=== PATIENT | female | born 1935 | race African-American/Black ===

== ENCOUNTER 2018-02-12 12:16 | Observation (INO) | payer MEDICARE, MEDICAID ==
[2018-02-12 13:06] LABS: #Basophils 0.1 thou/uL (0.0-0.2); #Eosinphils 0.2 thou/uL (0.0-0.7); #Lymphocytes 1.9 thou/uL (1.20-3.40); #Monocytes 0.5 thou/uL (0.11-0.59); #Neutrophils 3.7 thou/uL (1.40-6.50); %Basophils 1.2 % (0.0-1.0); %Eosinophils 3.7 % (0.0-10.0); %Lymphocytes 29.1 % (21.0-51.0); %Monocytes 7.1 % (0.0-10.0); Hemoglobin 13.7 g/dL (12.0-16.0); Mean Corpuscular HGB CONC 33.3 g/dL (32.0-36.0); Mean Corpuscular Hemoglobin 29.8 pg (27.0-31.0); Mean Corpuscular Volume 89.4 fL (78.0-98.0); Mean Platelet Volume 8.3 fL (7.4-10.4); Platelet Count 201 thou/uL (130-400); RBC Distribution Width 12.5 % (11.5-14.5); Red Blood Cell (RBC) Count 4.59 mill/uL (4.20-5.40); White Blood Cell (WBC) Count 6.4 thou/uL (4.8-10.8)
--- NOTE | 2018-02-12 13:31 | RAD ---
PORTABLE CHEST 1 VIEW: DATE: 02/12/18 TIME: 12:30 p.m. HISTORY: Dizziness. FINDINGS: The heart size is mildly enlarged. The aorta is tortuous. The lungs are expanded without focal area s of consolidation, pneumothoraces, or pleural effusions. There are degenerative changes in the spin e. IMPRESSION: Mild cardiomegaly. POS: C
[2018-02-12 13:32] LABS: CKMB 1.1 ng/mL (0-6.6); Troponin I Less than 0.010 ng/mL (< 0.028)
--- NOTE | 2018-02-12 13:32 | CT ---
CT BRAIN WITHOUT CONTRAST: HISTORY: Vertigo, dizziness. FINDINGS: There are no previous exams for comparison. There are changes of cortical atrophy and chronic small vessel ischemic disease. The ventricular size is appropriate and the basilar cisterns are patent. T he bony calvarium is intact. The visualized paranasal sinuses and mastoid air cells are well aerated . IMPRESSION: No CT evidence of acute intracranial process. POS: C
[2018-02-12] MEDS ORDERED: Aspirin 325 MG TAB ONE (14:05)
[2018-02-12] MEDS ORDERED: Labetalol HCl 100 MG/20 ML VIAL ONE (14:05)
[2018-02-12 14:50] LABS: Albumin 3.9 g/dL (3.4-4.8)
[2018-02-12 14:51] LABS: Calcium 9.4 mg/dL (7.8-10.44); Chloride 110 mmol/L (98-107); Potassium 3.8 mmol/L (3.5-5.1); Sodium 140 mmol/L (136-145)
[2018-02-12 14:52] LABS: Globulin 3.6 g/dL (2.4-3.5); Glucose 96 mg/dL (83-110); Protein, Total 7.5 g/dL (6.0-8.3)
[2018-02-12 14:54] LABS: Anion Gap 11 mmol/L (10-20); Bilirubin, Total 0.5 mg/dL (0.2-1.2); Carbon Dioxide 23 mmol/L (23-31)
[2018-02-12 14:55] LABS: Alkaline Phosphatase 81 U/L (40-150); Calc. Creatinine Clearance 0 mL/min (70-130); Estimated GFR-MDRD 88
[2018-02-12 14:56] LABS: BUN (Urea Nitrogen) 17 mg/dL (9.8-20.1)
[2018-02-12 14:57] LABS: AST (SGOT) 18 U/L (5-34)
[2018-02-12 14:58] LABS: ALT (SGPT) 7 U/L (8-55); CK (CPK) 116 U/L (29-168)
[2018-02-12 18:26] VITALS: BMI 30.2
[2018-02-12] MEDS ORDERED: hydrALAZINE 20 MG/ML VIAL SLOW IVP PRN (19:07)
[2018-02-12] MEDS ORDERED: Prevnar 13-Val Conj/PF 0.5 ML SYRINGE IM ONE (21:00)
--- NOTE | 2018-02-12 23:25 | PDOC.EVN ---
Event Note - Event Note Event Note: After receiving page about patient regarding pneumonia vaccine, our team became aware that patient was admitted under residency attending, Dr. Bill. However , I confirmed with Emergency Department mobile unit assistant that patient was admitted to [facility] at approximately 16:30 this afternoon as she is a patient of Dr. Gordon who admits to the hospitalist service. I have paged [facility] physician information technology coordinator and am awaiting confirmation that Ms. Matthews is on their service.
--- NOTE | 2018-02-13 00:40 | HP ---
CHIEF COMPLAINT: Dizziness. HISTORY OF PRESENT ILLNESS: The patient is an 82-year-old female with no significant past medical history, who states that it was her usual time to wake up this morning when she got out of bed, she had some vertigo and had to lie back down. She describes it as true vertigo with the room spinning. She states that it was only when she moved her head to the left, but if she kept her head to the right or straight, it was gone. This lasted for a period of 30 minutes and then completely abated. She has been completely at her baseline since that time. She denies any associated nausea, vomiting, headache, chest pain, palpitations, or shortness of breath. She has never had an episode like this before in the past. PAST MEDICAL HISTORY: Notable for hypertension. The patient is not taking any medications. States that she did take them for a while, but then got off of them and now she is only taking an OTC "tonic". PAST SURGICAL HISTORY: None. FAMILY HISTORY: Mother had diabetes. Father of "old age." SOCIAL HISTORY: The patient is a nonsmoker, nondrinker, nondrug user. She is . She has 2 sons, 2 daughters. Her surrogate decision maker would be her daughter, Alissa Aponte, and she is a FULL CODE. REVIEW OF SYSTEMS: Through a 10-system review is only notable for occasional mild depression, otherwise negative except for those things in the history of present illness. PHYSICAL EXAMINATION: VITAL SIGNS: Temperature 99.5, pulse 60, respirations 18, O2 sat 97%, blood pressure 194/87. GENERAL APPEARANCE: Age appropriate female, in no distress, very slightly hard of hearing. She is awake, alert, oriented, pleasant, and cooperative. HEENT: PERRL. No OP lesions. NECK: Supple and symmetric. CARDIOVASCULAR: Regular rate and rhythm without murmurs, gallops or rubs. LUNGS: Clear to auscultation bilaterally with good chest wall expansion and air exchange. ABDOMEN: Flat, soft, nontender, nondistended, positive bowel sounds, no masses , no organomegaly. EXTREMITIES: Warm and dry with no edema. NEUROLOGIC: The patient appears to be completely intact and nonfocal. She has no deficits identified with her cranial nerves, cerebellar function, or strength or sensation throughout. LABORATORY DATA AND IMAGING: White count 6.4, hemoglobin 13.7, platelets 201. Sodium 140, potassium 3.8, chloride 110, CO2 is 23, BUN is 17, creatinine 0.76, glucose 96, AST 18, ALT 7, albumin 3.9. Chest x-ray shows mild cardiomegaly. CT brain, no evidence of acute intracranial process. There are changes of cortical atrophy and chronic small vessel ischemic disease. IMPRESSION AND PLAN: 1. Acute episode of vertigo. Given the patient's elevated blood pressure, it was concerned this could be symptomatic hypertension or possibly some type of a cerebellar event. The fact that this lasted 30 minutes and completely resolved and was entirely positional and makes it less likely that this was some type of ischemic event. We will continue to monitor the patient tonight on telemetry and determine in the morning if any further workup is warranted such as investigation of the vasculature with CTA. Otherwise, the patient may be able to discharge to have outpatient followup. We will also check a fasting lipid panel in the morning to risk stratify her better. 2. Hypertension. The patient is on no home medications. She has been diagnosed in the past and was given medications, but has stopped everything, but the "tonic" that she uses. We will order p.r.n. for blood pressure. I believe we can safely attempt to lower the pressure. I think it is too high given that her symptoms were completely resolved and I do not believe she had an ischemic event. GAGE
[2018-02-13 03:48] LABS: #Eosinphils 0.2 thou/uL (0.0-0.7); #Lymphocytes 2.1 thou/uL (1.20-3.40); #Monocytes 0.5 thou/uL (0.11-0.59); #Neutrophils 3.9 thou/uL (1.40-6.50); %Basophils 0.6 % (0.0-1.0); %Eosinophils 2.9 % (0.0-10.0); %Lymphocytes 31.5 % (21.0-51.0); Hemoglobin 12.1 g/dL (12.0-16.0); Mean Corpuscular HGB CONC 32.2 g/dL (32.0-36.0); Mean Corpuscular Hemoglobin 28.6 pg (27.0-31.0); Mean Corpuscular Volume 88.9 fL (78.0-98.0); Platelet Count 196 thou/uL (130-400); RBC Distribution Width 12.5 % (11.5-14.5); Red Blood Cell (RBC) Count 4.24 mill/uL (4.20-5.40); White Blood Cell (WBC) Count 6.7 thou/uL (4.8-10.8)
[2018-02-13 04:11] LABS: Anion Gap 15 mmol/L (10-20); BUN (Urea Nitrogen) 17 mg/dL (9.8-20.1); Calc. Creatinine Clearance 67 mL/min (70-130); Calcium 9.4 mg/dL (7.8-10.44); Carbon Dioxide 19 mmol/L (23-31); Cardiac Risk 4.3 (Less than 4.5); Chloride 110 mmol/L (98-107); Cholesterol 208 mg/dl (< 200 Desired); Estimated GFR-MDRD Greater than 90; Glucose 96 mg/dL (83-110); HDL Cholesterol 48 mg/dL (>60 Neg Risk); LDL Cholesterol, Calculated 137 mg/dL; Potassium 3.5 mmol/L (3.5-5.1); Sodium 140 mmol/L (136-145); Triglycerides 115 mg/dL (Less than 150)
[2018-02-13 07:46] VITALS: BP 161/74; TEMP 98
--- NOTE | 2018-02-13 10:19 | PDOC.PN ---
- Subjective Encounter Start Date: 02/13/18 Encounter Start Time: 10:17 Ms. Matthews was seen today in follow-up. She is feeling better today. She is less dizzy, she was up to the bathroom and back without difficulty. - Objective Resuscitation Status: Resuscitation Status FULL:Full Resuscitation MAR Reviewed: Yes Vital Signs & Weight: Vital Signs (12 hours) Temp Pulse Resp BP BP Pulse Ox 02/13/18 07:54 98 F 60 16 02/13/18 07:46 98 F 60 16 161/74 H 97 02/13/18 04:00 97.9 F 66 16 154/71 H 98 02/13/18 01:15 151/91 H 02/13/18 00:43 64 195/107 H 02/13/18 00:00 98.3 F 55 L 16 195/107 H 97 Weight Weight 157 lb 12.8 oz I&O: 02/12/18 02/13/18 02/14/18 06:59 06:59 06:59 Intake Total 240 Balance 240 Result Diagrams: 02/13/18 03:34 02/13/18 03:34 Phys Exam - Physical Examination HEENT: PERRLA Respiratory: no wheezing, no rales, no rhonchi, clear to auscultation bilateral Cardiovascular: RRR, no significant murmur, no rub Gastrointestinal: soft, non-tender, no distention, positive bowel sounds Musculoskeletal: no edema Neurological: non-focal, moves all 4 limbs Dx/Plan (1) HTN (hypertension) Code(s): I10 - ESSENTIAL (PRIMARY) HYPERTENSION Status: Acute (2) Benign positional vertigo Code(s): H81.10 - BENIGN PAROXYSMAL VERTIGO, UNSPECIFIED EAR Status: Acute - Plan * Benign Position Vertigo= stable resolving spontaneously * HTN- her blood pressure has been consistently elevated- she had been on a blood pressure medication before, but has discontinued it- will start Amlodipine , and I have discussed the importance of compliance with blood pressure medication * Stable for discharge home.
[2018-02-13] MEDS ORDERED: Amlodipine 5 MG TAB PO SCH (10:45)
--- NOTE | 2018-02-13 13:42 | EKG ---
Test Reason : CP Blood Pressure : / mmHG Vent. Rate : 072 BPM Atrial Rate : 072 BPM P-R Int : 140 ms QRS Dur : 082 ms QT Int : 386 ms P-R-T Axes : 000 -18 -09 degrees QTc Int : 422 ms Poor data quality, interpretation may be adversely affected Normal sinus rhythm Voltage criteria for left ventricular hypertrophy Abnormal ECG Confirmed by ANDRIY Sunshine, CHLOE ([id number]), brands editor ANGIE MCDONALD ([id number]) on 02/13/2018 1:42:00 PM Referred By: ANDRIY Confirmed By:CHLOE ASHRAF M.D.
--- NOTE | 2018-02-13 15:39 | DIS ---
DATE OF ADMISSION: 02/12/2018 DATE OF DISCHARGE: 02/13/2018 PRIMARY CARE PHYSICIAN: Alexsander Gordon M.D. DISCHARGE DISPOSITION: Home. PRIMARY DISCHARGE DIAGNOSES: 1. Benign positional vertigo. 2. Hypertension. DISCHARGE MEDICATIONS: Include amlodipine 5 mg 1 p.o. daily. PROCEDURES DONE DURING ADMISSION: The patient had a CT scan of the brain, which was negative for any acute intracranial process. CODE STATUS: Full code. ALLERGIES: No known drug allergies. HOSPITAL COURSE: Ms. Matthews is a pleasant 82-year-old female that presented to the emergency room w [facility] complaints of feeling dizzy like the room was spinning. She says it usually would be when she tu rned her head to the left. If she kept her head straight or to the right, there was no dizziness. B y the time she was seen in the emergency room, her symptoms have actually almost resolved. CT scan o f the head was done, which was negative. It was also noted that her blood pressure was extremely hig h around the 190s systolic. She had been started on a blood pressure medication by a primary care ph ysician, we believe, Dr. Gordon. The patient had taken the medication for about 2 months, but discon tinued it. She said during the time she was taking the medicine, she has got nausea and vomiting. I asked her if it was during the entire time while she was on the medication, but she denied this. I suspect it was likely a coincidence that this happened and not an adverse reaction to the medication. The patient was started on amlodipine. I also counseled her on the importance of being compliant w [facility] medications and she was discharged home on amlodipine in stable condition.
[2018-02-14] MEDS ORDERED: Amlodipine 5 MG TAB PO SCH (09:00)
== END 2018-02-13 11:59 | disposition home or self-care (01) ==
LOC: ERS 12:16 → 2SE 15:26 → INTOOBSV 15:26
PROVIDERS: ADMIT Family Medicine; ATTEND Family Medicine
DX: H81.10 Benign paroxysmal vertigo, unspecified ear (principal); I10 Essential (primary) hypertension; Z79.899 Other long term (current) drug therapy
CPT/HCPCS: 70450; 71045; 80048; 80053; 80061; 82550; 82553; 84484; 85025 ×2; 93005; 94760; 96374; 96376; 99285; G0378 ×2; 36415; 90471; 90670; G0009; J0360

== ENCOUNTER → 2018-05-26 | Emergency (ER) | payer MEDICARE, MEDICAID ==
--- NOTE | 2018-05-26 12:10 | RAD ---
LEFT HIP 2 VIEWS: DATE: 05/26/18 HISTORY: Trip and fall at home. Left hip pain. COMPARISON: None. FINDINGS: No acute displaced fracture or malalignment. The obturator ring is intact. No intertrochanteric fracture. IMPRESSION: 1. No acute displaced fracture. 2. Likely a left lateral hip soft tissue contusion. POS: [facility]
== END ==
LOC: ERS 10:56 → EDBD 10:56
DX: S70.02XA Contusion of left hip, initial encounter (principal); I10 Essential (primary) hypertension; W01.0XXA Fall on same level from slipping, tripping and stumbling without subsequent striking against object, initial encounter

== ENCOUNTER 2018-07-12 11:25 | Inpatient (IN) | payer MEDICARE, MEDICAID ==
[~2018-07-12 11:25] MED LIST: ISOVUE-370 76%-LOCM 1 ML ONE
[2018-07-12 11:44] LABS: #Basophils 0.1 thou/uL (0.0-0.2); #Eosinphils 0.1 thou/uL (0.0-0.7); #Lymphocytes 1.3 thou/uL (1.20-3.40); #Monocytes 0.7 thou/uL (0.11-0.59); #Neutrophils 8.5 thou/uL (1.40-6.50); %Basophils 0.8 % (0.0-1.0); %Eosinophils 0.5 % (0.0-10.0); %Lymphocytes 12.4 % (21.0-51.0); %Monocytes 6.5 % (0.0-10.0); %Neutrophils 79.8 % (42.0-75.0); Hemoglobin 12.3 g/dL (12.0-16.0); Mean Corpuscular HGB CONC 31.7 g/dL (32.0-36.0); Mean Corpuscular Hemoglobin 29.1 pg (27.0-31.0); Mean Corpuscular Volume 91.7 fL (78.0-98.0); Mean Platelet Volume 8.1 fL (7.4-10.4); Platelet Count 260 thou/uL (130-400); RBC Distribution Width 12.3 % (11.5-14.5); Red Blood Cell (RBC) Count 4.21 mill/uL (4.20-5.40); White Blood Cell (WBC) Count 10.6 thou/uL (4.8-10.8)
[2018-07-12 11:51] LABS: PTT 29.9 SEC (22.9-36.1); Prothrombin Time 13.1 SEC (12.0-14.7)
[2018-07-12 12:03] LABS: ALT (SGPT) 10 U/L (8-55); AST (SGOT) 19 U/L (5-34); Albumin 3.9 g/dL (3.4-4.8); Alkaline Phosphatase 87 U/L (40-150); Anion Gap 12 mmol/L (10-20); BUN (Urea Nitrogen) 20 mg/dL (9.8-20.1); Bilirubin, Total 0.3 mg/dL (0.2-1.2); CK (CPK) 280 U/L (29-168); Calc. Creatinine Clearance 0 mL/min (70-130); Calcium 9.5 mg/dL (7.8-10.44); Carbon Dioxide 22 mmol/L (23-31); Chloride 110 mmol/L (98-107); Estimated GFR-MDRD 77; Globulin 3.4 g/dL (2.4-3.5); Glucose 122 mg/dL (83-110); Potassium 3.7 mmol/L (3.5-5.1); Protein, Total 7.3 g/dL (6.0-8.3); Sodium 140 mmol/L (136-145)
--- NOTE | 2018-07-12 12:50 | HP ---
PRIMARY CARE PHYSICIAN: Dr Gordon. REASON FOR ADMISSION: Acute CVA, status post tPA. HISTORY OF PRESENT ILLNESS: An 82-year-old female, who has underlying history of hypertension, who was brought to emergency room with acute onset of slurred speech and right upper and lower extremity weakness. The patient's family members are present at bedside, who provided most of the history. This morning around 8:30, the patient's sister tried to call her at that time, where she appeared little bit altered. The patient's family member called paramedics. Paramedics visited her earlier this morning and at that time, the patient refused to go to the hospital. The patient's family member did not have any chance to talk to paramedics, but they reportedly told them that she was fine. Around 11:00 a.m. , the patient's sister was at her home and when she was walking, the patient was not able to maintain her balance and she fell down. Her speech was slurred that was almost started around 11:00. Paramedics was second time called, at that time, the patient was found with right upper and lower extremity weakness, which was not there before. The patient was brought to ER. She was meeting tPA criteria. Initial CT brain and CT angiography was negative for any acute process. The patient was given tPA in the emergency room and subsequently, we decided to keep this patient in ICU. When I saw this patient at that time, the patient was continuously having slurred speech. Her right upper extremity weakness had some improvement as well as lower extremity started moving, but right lower extremity was still weak. She did not have any headache, nausea, vomiting, chest pain, palpitations, shortness of breath. She was taking her medication as prescribed. In the emergency room, routine blood test was unremarkable. Family member was updated about condition and test result. REVIEW OF SYSTEMS: CONSTITUTIONAL: Negative for weight loss or gain, ability to conduct usual activities. SKIN: Negative for rash, itching. EYES: Negative for double vision, pain. ENT/MOUTH: Negative for nose bleeding, neck stiffness, pain, tenderness. CARDIOVASCULAR: Negative for palpitations, dyspnea on exertion, orthopnea. RESPIRATORY: Negative for shortness of breath, wheezing, cough, hemoptysis, fever or night sweats. GASTROINTESTINAL: Negative for poor appetite, abdominal pain, heartburn, nausea , vomiting, constipation, or diarrhea. GENITOURINARY: Negative for urgency, frequency, dysuria, nocturia. MUSCULOSKELETAL: Negative for pain, swelling. NEUROLOGIC/PSYCHIATRIC: Negative for anxiety, depression. ALLERGY/IMMUNOLOGIC: Negative for skin rash, bleeding tendency. Please see my HPI for pertinent positive and negative. All other review of systems reviewed and negative except as mentioned in the HPI. PAST MEDICAL HISTORY: Hypertension. PAST SURGICAL HISTORY: Reviewed and negative. PAST PSYCHIATRIC HISTORY: Reviewed and negative. FAMILY HISTORY: Mother had diabetes. Father in his old age. SOCIAL HISTORY: The patient lives by herself at home. She is . She has 2 sons, 2 daughters. She has no history of tobacco, alcohol, or illicit drug abuse. Her surrogate decision maker is her daughter, Alissa, who is present at bedside. She is full code. CURRENT HOME MEDICATIONS: Amlodipine 5 mg p.o. daily. ALLERGIES: NO KNOWN DRUG ALLERGY. EMERGENCY ROOM COURSE: The patient is receiving tPA at this point. PHYSICAL EXAMINATION: VITAL SIGNS: Currently, blood pressure 153/71, pulse 67, respiratory rate 16, temperature 97.5, and saturation 100% on room air. Weight 74.07 kg. GENERAL: The patient is currently alert, awake. No obvious acute distress. HEENT: Head; normocephalic, atraumatic. Eyes; pupils are round and reactive to light. Extraocular muscle intact. ENT; oropharynx within normal limits. Moist mucous membranes. No oral lesion. No pharyngeal erythema. No exudate. NECK: Supple. No JVD. No thyromegaly. No carotid bruit. No meningeal signs of irritation. LUNGS: Clear to auscultation without any rhonchi or rales. CARDIAC: S1 and S2, regular. No murmur. No gallop. No rub. ABDOMEN: Soft bowel sounds present. Nontender. Nondistended. No organomegaly. No mass. No suprapubic tenderness. BACK: Unremarkable. No CVA tenderness. EXTREMITIES: Upper extremity; passive movement of all joints are normal. Lower extremity; passive movement of all joints are normal. No edema. Good distal pulsation. SKIN: No skin rash. HEMATOLOGICAL SYSTEM: No lymphadenopathy. PSYCHIATRIC: Normal affect. NEUROLOGIC: The patient is alert, awake. Her speech is slurred. She has right facial droop. She has right upper extremity power 4/5 and right lower extremity power 3/5. Left-sided within normal limit. Reflexes are symmetrical. Sensation intact. Plantar extensor on the right side. Cerebellar sign, unable to test. DIAGNOSITC DATA: 1. Significant labs; CT brain based on my review, no acute intracranial process. Old right anterior stroke noted. CT angiography negative for any large vessel occlusion. 2. CBC: WBC 10.6, hemoglobin 12.3, and platelet 260. INR 1.0. BMP: Sodium 140, potassium 3.7, chloride 110, carbon dioxide 22, anion gap 12, BUN 20, creatinine 0.85, glucose 122, calcium 9.5. 3. LFT: AST 19, ALT 10, alkaline phosphatase 87, and albumin 3.9. CK 280, troponin I 0.010. 4. EKG showing sinus rhythm without any ischemic changes. ASSESSMENT AND PLAN: 1. 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 The patient is meeting criteria for tPA and she is in window. TPA is given after lengthy discussion of risk and benefit and after consent. After tPA, we will keep this patient in ICU for 24 hours. For next 24 hours, we will avoid antiplatelet and anticoagulant therapy. We will repeat CT brain after 24 hours or if neurological change happens. Neurology will be consulted and Stroke Team will be consulted. If she remained stable after tPA, then within 24 hours, we will transfer her to Stroke floor and a Stroke Team evaluation will be continued. This patient may need rehab placement. After 24 hours, we will start aspirin 325 mg p.o. daily. We will check lipid profile and start Lipitor 40 mg p.o. at bedtime. We will try to keep her blood pressure 140 to 160 systolic after stroke. We will restart amlodipine 5 mg p.o. daily. If blood pressure going up, we will monitor neurologically. We will obtain MRI brain and echocardiography as a part of stroke workup. We will check homocystine, RPR, and lipid panel tomorrow. 2. Hypertension, currently well controlled. We will keep blood pressure around 140 to 160 systolic after cerebrovascular accident. If blood pressure is going very high, then we will start amlodipine 5 mg p.o. daily. 3. Dyslipidemia. We will start Lipitor 40 mg p.o. at bedtime and check lipid profile tomorrow. 4. Deep vein thrombosis prophylaxis. After 24 hours, we will start Lovenox 40 mg subcu daily for deep vein thrombosis prophylaxis. 5. Gastrointestinal prophylaxis, Pepcid 20 mg p.o. IV b.i.d. CODE STATUS: The patient is full code. The patient's sister, Alissa, is decision maker. DISPOSITION PLAN: Based on clinical course, we are expecting the patient's stay in hospital more than 2 midnights. Plan of care discussed with the patient and family member at bedside in the emergency room. Job ID: [id number] [facility]
[2018-07-12] MEDS ORDERED: Loperamide HCl 2 MG CAP PO PRN (13:34)
[2018-07-12] MEDS ORDERED: Bisacodyl 10 MG SUPP PR PRN (13:34)
[2018-07-12] MEDS ORDERED: Cepastat Lozenges 1 LOZ PO PRN (13:34)
[2018-07-12] MEDS ORDERED: Diabetic Tussin 200 MG/10 ML UDCUP PO PRN (13:34)
[2018-07-12] MEDS ORDERED: Hydrocerin (Eucerin) Cream 120 gm Jar TOP PRN (13:34)
[2018-07-12] MEDS ORDERED: Acetaminophen 650 MG Suppository PR PRN (13:34)
[2018-07-12] MEDS ORDERED: Artificial Tears 18 DROP/0.9 ML EA EYE PRN (13:34)
[2018-07-12] MEDS ORDERED: Sodium Chloride 0.65% Nasal 44 ML BOT EA NARE PRN (13:34)
[2018-07-12] MEDS ORDERED: Calcium Carbonate 500 MG ChewTAB PO PRN (13:34)
[2018-07-12] MEDS ORDERED: Acetaminophen 325 MG TAB PO PRN (13:34)
[2018-07-12] MEDS ORDERED: Zolpidem Tartrate 5 MG TAB PO PRN (13:34)
[2018-07-12] MEDS ORDERED: Bisacodyl 5 MG TAB PO PRN (13:34)
[2018-07-12] MEDS ORDERED: Ondansetron ODT 4 MG TAB PO PRN (13:34)
[2018-07-12] MEDS ORDERED: Ondansetron PF 4 MG/2 ML Vial IVP PRN (13:34)
[2018-07-12] MEDS ORDERED: Senokot S 8.6-50 MG TAB PO PRN (13:34)
[2018-07-12 13:36] VITALS: BMI 28.1
--- NOTE | 2018-07-12 14:34 | CT ---
CT BRAIN NONCONTRAST: DATE: 07/12/2018. TIME: 11:32 a.m. HISTORY: An 82-year-old female undergoing acute stroke: right-sided facial droop and right upper extremity we akness. Dr. Ledesma gave this stroke alert protocol report STAT to Dr. Mccray at 11:41 a.m. on 07/12/2018. COMPARISON: 02/12/2018. FINDINGS: Again noted is the patchy region of encephalomalacia and gliosis involving the anterior portion of th e right basal ganglia, and adjacent anterior limb of right internal capsule, anterior portion of righ t external capsule, and head of right caudate nucleus. There are at least moderate chronic ischemic white matter changes in the aleman radiata and the centr um semiovale. No obstructive hydrocephalus, acute intraaxial or exraaxial hemorrhage, mass effect, m idline shift, or extraaxial fluid collection. No calvarial lesion. No interval change overall since 02/12/2018. IMPRESSION: 1. No acute intracranial findings. 2. Old infarction in the right corpus striatum. 3. At least moderate chronic ischemic white matter changes. CODE BRIANDA Russo POS: [facility]
--- NOTE | 2018-07-12 14:47 | CT ---
CT ANGIOGRAM OF THE HEAD WITH CONTRAST CT ANGIOGRAM OF THE NECK WITH CONTRAST: DATE: 07/12/2018. TIME: 11:36 a.m. HISTORY: An 82-year-old female undergoing acute stroke: right facial droop and right upper extremity weakness . This stroke alert protocol report was called STAT to Dr. Mccray of the emergency department at 11:58 a.m. on 07/12/2018. TECHNIQUE: IV contrast was injected with 100 mL of Isovue 370. Arterial bolus chasing technique scan performed from just inferior to the valerie to vertex of head. Coronal and sagittal 3D MIP reconstructions of head. Coronal and sagittal 3D MIP reconstructions of neck. 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 Single midline A2 segment suppli ed by left A1 segment of anterior cerebral artery. The single midline A2 segment later bifurcates an terior to the genu of the corpus callosum. No evidence of short-segment acquired stenosis or occlusion involving the M1 segments of the bilatera l middle cerebral arteries. No significant stenosis of bilateral carotid siphons. Medialized, retropharyngeal courses of cervical portions of bilateral internal carotid arteries and d istal common carotid arteries, with no significant acquired short-segment stenosis. Mild atheroscler otic plaque at bilateral carotid bulbs. Left common carotid artery arises from the brachiocephalic a rtery. Tortuosity of bilateral common carotid arteries. Focal noncalcified plaque at right carotid bulb causing mild stenosis. No high-grade stenosis of left common carotid artery or most of the righ t common carotid artery. The proximal aspect of the right common carotid artery is partially obscure d by streak artifact from dense contrast bolus in adjacent right subclavian vein. No high-grade sten osis of bilateral subclavian arteries or brachiocephalic artery. Cervical right vertebral artery is dominant over the left, but it still has small caliber. There is severe short-segment stenosis at th e origin of the right vertebral artery. The left vertebral artery terminates in PICA. The intracranial portion of the right vertebral artery is very thin, diminutive, as is the basilar artery. There are patent bilateral posterior communicat ing arteries. The bilateral posterior cerebral arteries are not occluded. The one on the right is d iffusely thin in caliber. IMPRESSION: 1. No evidence of occlusion of M1 segments of middle cerebral arteries. 2. 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 3. Diminutive left vertebral artery terminating in PICA (posterior-inferior cerebellar artery territ ory). 4. The dominant right vertebral artery is also small in caliber. 5. basilar artery is also very diffusely thin, supplied only by the small caliber right vertebral ar radames. 6. 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 7. Bovine origin of left common carotid artery. 8. No high-grade stenosis of internal carotid arteries. CODE CR POS: [facility]
--- NOTE | 2018-07-12 16:32 | CON ---
DATE OF CONSULTATION: 07/12/2018 TIME SPENT: This is 50 minutes of the time, of that time, greater than 50% was spent with the patient and/or the patient's unit in the hospital. HISTORY OF PRESENT ILLNESS: Ms. Matthews is a very nice 82-year-old female, who came into the hospital earlier today after she developed right-sided arm and leg weakness at home with slurred speech. She called her sister, who called her son, who came over and subsequently called Paramedics and transported to the hospital. She was felt to be having a left MCA territory stroke. She was given tPA and has since recovered all of her deficits and feels like she is at baseline. PAST MEDICAL HISTORY: She has had no previous stroke. She does have a history of hypertension. PAST SURGICAL HISTORY: Unremarkable. SOCIAL HISTORY: Lives by herself. Does not smoke. Does not consume alcohol. Does not use illicit drugs. Performs all of her activities of daily living except for driving. MEDICATIONS: Amlodipine 5 mg daily. ALLERGIES: NONE. FAMILY MEDICAL HISTORY: Unremarkable for stroke, but her mom had diabetes. REVIEW OF SYSTEMS: A 12-point review of systems is otherwise negative. PHYSICAL EXAMINATION: VITAL SIGNS: Temperature 97.8, pulse 69, blood pressure 186/74, O2 saturation 100%, and respiratory rate 18. GENERAL: She is awake, alert, and oriented, in no distress. NEUROLOGIC: Cranial nerves 2 through 12 are intact. She has 5/5 strength in her arms and legs. No differences that I can see. HEENT: Otherwise unremarkable. NECK: No JVD. No bruits. LUNGS: Clear to auscultation. CARDIAC: S1 and S2, regular. No audible murmur. ABDOMEN: Soft and nontender. EXTREMITIES: No edema. LABORATORY DATA: White blood cell count 10.6, hematocrit 38.6, and platelet count 260. Sodium 140, potassium 3.7, BUN 20, creatinine 0.8, glucose 122. Troponin 0.1. Her CT of the brain showed no acute findings. ASSESSMENT: Stroke with recovered deficits after receiving tPA. PLAN: 1. Agree with Neurology consultation. 2. Leave in ICU for 24 hours after the administration of tPA. 3. Aspirin therapy. 4. Start stroke rehab as soon as possible. 5. I think she is safe enough to where she can eat. Job ID: [id number]
[2018-07-12] MEDS: Labetalol HCl 100 MG/20 ML VIAL SLOW IVP PRN ×2 (16:34→17:47)
[2018-07-12] MEDS: Communication Order-Pharmacy FS SCH (16:43)
[2018-07-12] MEDS ORDERED: hydrALAZINE 20 MG/ML VIAL ONE (17:04)
[2018-07-12] MEDS: Famotidine 20 MG TAB PO SCH (20:21)
[2018-07-12] MEDS: Atorvastatin Calcium 40 MG TAB PO SCH (20:21)
[2018-07-12] MEDS: Latanoprost 0.005% Ophth Soln 2.5 ml Bottle EA EYE SCH (20:21)
[2018-07-12] MEDS ORDERED: Famotidine/PF 20 mg/2ml Vial SLOW IVP SCH (21:00)
[2018-07-13 08:39] LABS: Hemoglobin A1c 5.5 % (4.0-6.0)
[2018-07-13 08:47] LABS: INR-International Normal Ratio 1.2; PTT 34.7 SEC (22.9-36.1); Prothrombin Time 15.2 SEC (12.0-14.7)
[2018-07-13] MEDS: Dorzolamide HCl 2% Ophth Soln 10 ml Bottle EA EYE SCH ×2 (08:51→14:33)
[2018-07-13] MEDS: Brimonidine Tartrate 0.2% Ophth Soln 5 ml Bottle EA EYE SCH ×2 (08:54→14:39)
[2018-07-13 08:57] LABS: ALT (SGPT) 8 U/L (8-55); AST (SGOT) 21 U/L (5-34); Albumin 3.6 g/dL (3.4-4.8); Alkaline Phosphatase 79 U/L (40-150); Anion Gap 14 mmol/L (10-20); BUN (Urea Nitrogen) 18 mg/dL (9.8-20.1); Bilirubin, Total 0.5 mg/dL (0.2-1.2); Calc. Creatinine Clearance 58 mL/min (70-130); Calcium 9.3 mg/dL (7.8-10.44); Carbon Dioxide 21 mmol/L (23-31); Cardiac Risk 3.8 (Less than 4.5); Chloride 108 mmol/L (98-107); Cholesterol 189 mg/dl (< 200 Desired); Estimated GFR-MDRD 83; Globulin 2.9 g/dL (2.4-3.5); Glucose 96 mg/dL (83-110); HDL Cholesterol 50 mg/dL (>60 Neg Risk); LDL Cholesterol, Calculated 118 mg/dL; Potassium 3.8 mmol/L (3.5-5.1); Protein, Total 6.5 g/dL (6.0-8.3); Sodium 139 mmol/L (136-145); Triglycerides 106 mg/dL (Less than 150)
--- NOTE | 2018-07-13 10:34 | PRG ---
DATE OF SERVICE: 07/13/2018 SUBJECTIVE: She is doing well. She has recovered all of her stroke deficit. She is going down for an MRI this morning. OBJECTIVE: VITAL SIGNS: Her temperature is 98.5, pulse 81, blood pressure 158/88, O2 saturation 100%. HEENT: Unremarkable. NECK: No JVD. LUNGS: Clear. CARDIAC: S1, S2. Regular. ABDOMEN: Soft. EXTREMITIES: No edema. LABORATORY DATA: Sodium 138, potassium 3.8, BUN 18, creatinine 0.8. ASSESSMENT: Cerebrovascular accident-recovered deficit after tPA. PLAN: Okay to transfer to the floor. No further Pulmonary recommendations. We will sign off. Please recall if further assistance is needed. Job ID: [id number]
--- NOTE | 2018-07-13 10:42 | CT ---
CT BRAIN WITHOUT CONTRAST: HISTORY: CVA status post TPA. FINDINGS: Comparison is made with the exam of previous day. Changes of chronic small-vessel ischemic disease a nd old right basal ganglion infarction again seen. The ventricular size is stable and the basilar ci sterns are patent. No evidence of acute infarct, hemorrhage, midline shift, or abnormal extraaxial f luid collection is noted. The bony calvarium is intact. The visualized paranasal sinuses and mastoi d air cells are well aerated. IMPRESSION: No CT evidence of acute intracranial process. POS: OCHOA
--- NOTE | 2018-07-13 11:11 | MRI ---
MRI BRAIN NONCONTRAST: DATE: 07/13/2018. TIME: 10:07 a.m. HISTORY: An 82-year-old female undergoing acute stroke symptoms: right facial droop and right upper extremity weakness. COMPARISON: No prior MRIs of brain. FINDINGS: There is an approximately 2 x 1.5 cm triangular T2-hyperintense lesion in the posterior aspect of the left basal ganglia with strongly restricted diffusion, representing an acute infarction. Its superi or aspect involves the body of the left caudate nucleus. There is an old infarction at the contralateral right basal ganglia anterior component, involving adj acent anterior portions of the internal and external capsules, and the right caudate nucleus. There are moderate chronic ischemic white matter changes in the cerebral white matter bilaterally. There are scattered several tiny punctate foci of remote hemorrhages in the lower portions of bilater al basal ganglia, posteromedial right temporal lobe, and bilateral occipital lobes. This could repre sent mild chronic hypertensive encephalopathy or mild amyloid angiopathy. There is no obstructive hydrocephalus. No mass effect, midline shift, or extraaxial fluid collection . Moderate chronic ischemic white matter changes of the gino. IMPRESSION: 1. 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 2. 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 3. Moderate chronic ischemic white matter changes due to microvascular atherosclerosis. 4. Several tiny punctate foci of remote hemorrhages. This could either represent mild chronic hyper tensive encephalopathy or mild amyloid angiopathy. YOVANA Russo POS: OCHOA
--- NOTE | 2018-07-13 11:18 | CON ---
DATE OF CONSULTATION: 07/13/2018 TYPE OF CONSULTATION: Neurology. CONSULTING PHYSICIAN: Hospitalist Service. IMPRESSION: Resolving stroke with right-sided weakness secondary to small vessel disease. PLAN: 1. Aspirin 81 mg per day. 2. Low-dose statin. 3. PT/OT evaluations. HISTORY OF PRESENT ILLNESS: Ms. Matthews is an 82-year-old black female with a past history of hypertension. She presented with acute onset of right-sided weakness. Her CT was initially negative for any evidence of a hemorrhage. CTA showed diminutive posterior circulation flow including high-grade right vertebral artery stenosis, very small left vertebral and basilar artery. MCA and ICA flow were good. She was given tPA. Her symptoms resolved overnight. She has no past history of stroke, although her CAT scan showed an old right area of periventricular frontal hypointensity. She had an MRI this morning, which showed a diffusion defect involving the external capsule in the left periventricular region. There is moderately extensive small vessel ischemic changes bilaterally in the periventricular regions. EKG showed a normal sinus rhythm. Laboratory studies were unremarkable. She denies any history of TIA or stroke in the past. She was not taking aspirin or statin prior to admission. PAST MEDICAL HISTORY: Arthritis and hypertension. ALLERGIES: NONE. SOCIAL HISTORY: No tobacco or alcohol use. FAMILY HISTORY: Noncontributory. REVIEW OF SYSTEMS: Ten-system review of systems is otherwise negative. PHYSICAL EXAMINATION: GENERAL: She is somewhat frail, elderly lady, sitting up in the chair, in no acute distress. VITAL SIGNS: Have been stable. Her blood pressure 158/88, pulse 71, respirations 16, and temperature 98.5. HEENT: Pupils are equal and reactive. Conjunctivae clear. Oropharynx clear. NECK: Supple. No lymphadenopathy. EXTREMITIES: No cyanosis, clubbing, or edema. NEUROLOGIC: She was alert and cooperative. Her speech is fluent and clear. Cranial nerves 2 through 12 are intact. She had equal cold storage worker strength and no fix or drift. She was unsteady on her feet and apparently uses a walker at home. Sensation was intact to light touch. No abnormal movements were seen. IMAGING: Reviewed. SUMMARY: This is an elderly lady with moderately extensive small vessel disease with acute right-sided weakness. Her symptoms have resolved, although her MRI shows a persistent deficit in the subcortical region. Antiplatelet and statin therapy would be appropriate. It seems that she is resolving quickly and likely can be discharged home in the near term. Job ID: [id number]
--- NOTE | 2018-07-13 12:05 | PDOC.PN ---
- Subjective Encounter Start Date: 07/13/18 Encounter Start Time: 10:00 -: old records requested/rev pt overall doing well, tolerating food, no headache, her NIH score is zero, Patient seen and examined. No new complaints. No overnight events - Objective Resuscitation Status - Order Detail: 07/12/18 12:39 Resuscitation Status Routine Resuscitation Status: FULL: Full Resuscitation MAR Reviewed: Yes Vital Signs & Weight: Vital Signs (12 hours) Temp Pulse Ox 07/13/18 08:00 98.5 F 100 07/13/18 04:00 98.6 F Weight Weight 151 lb 10.848 oz Most Recent Monitor Data Heart Rate from ECG 71 NIBP 158/88 NIBP BP-Mean 111 Respiration from ECG 16 SpO2 100 I&O: 07/12/18 07/13/18 07/14/18 06:59 06:59 06:59 Intake Total 575 200 Output Total 250 0 Balance 325 200 Result Diagrams: 07/12/18 11:30 07/13/18 08:05 Radiology Reviewed by me: Yes (MRI left corpus striatum infarction) EKG Reviewed by me: Yes (nsr) Phys Exam - Physical Examination Constitutional: NAD HEENT: PERRLA, moist MMs, sclera anicteric Neck: no JVD, supple Respiratory: no wheezing, no rales, no rhonchi Cardiovascular: RRR, no significant murmur, no rub Gastrointestinal: soft, non-tender, no distention, positive bowel sounds Musculoskeletal: no edema, pulses present Neurological: non-focal, normal sensation Lymphatic: no nodes Psychiatric: normal affect, A&O x 3 Skin: no rash, normal turgor Dx/Plan (1) Acute CVA (cerebrovascular accident) Code(s): I63.9 - CEREBRAL INFARCTION, UNSPECIFIED Status: Acute Comment: left corpus striatum infarction (2) tPA adm status 24 hr [employer] Code(s): Z92.82 - S/P ADMN TPA IN DIFF FAC W/N LAST 24 HR BEF ADM TO CRNT FAC Status: Acute (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 - OTHER DISORDERS OF SULFUR-BEARING AMINO-ACID METABOLISM Status: Acute (4) Vertebral artery stenosis Code(s): I65.09 - OCCLUSION AND STENOSIS OF UNSPECIFIED VERTEBRAL ARTERY Status: Chronic Qualifiers: Laterality: right Qualified Code(s): I65.01 - Occlusion and stenosis of right vertebral artery (5) Dyslipidemia Code(s): E78.5 - HYPERLIPIDEMIA, UNSPECIFIED Status: Chronic (6) Glaucoma Code(s): H40.9 - UNSPECIFIED GLAUCOMA Status: Chronic (7) HTN (hypertension) Code(s): I10 - ESSENTIAL (PRIMARY) HYPERTENSION Status: Chronic - Plan cont current plan of care, PT/OT, forensic social worker * today will transfer to stroke floor * continue stroke team evaluation * medication reviewed as below * symptomatic treatment * will add folic acid, vitamin B6, B12. Review of Systems - Review of Systems ENT: negative: Ear Pain, Ear Discharge, Nose Pain, Nose Discharge, Nose Congestion, Mouth Pain, Mouth Swelling, Throat Pain, Throat Swelling, Other Respiratory: negative: Cough, Dry, Shortness of Breath, Hemoptysis, SOB with Excertion, Pleuritic Pain, Sputum, Wheezing Cardiovascular: negative: chest pain, palpitations, orthopnea, paroxysmal nocturnal dyspnea, edema, light headedness, other Gastrointestinal: negative: Nausea, Vomiting, Abdominal Pain, Diarrhea, Constipation, Melena, Hematochezia, Other Genitourinary: negative: Dysuria, Frequency, Incontinence, Hematuria, Retention , Other Musculoskeletal: negative: Neck Pain, Shoulder Pain, Arm Pain, Back Pain, Hand Pain, Leg Pain, Foot Pain, Other Skin: negative: Rash, Lesions, Gurinder, Bruising, Other - Medications/Allergies Allergies/Adverse Reactions: Allergies Allergy/AdvReac Type Severity Reaction Status Date / Time No Known Allergies Allergy Verified 07/12/18 13:58 Medications: Current Medications Acetaminophen (Tylenol) 650 mg PO Q4H PRN PRN Reason: Headache/Fever/Mild Pain (1-3) Artificial Tears (Tears Naturale) 2 drop EA EYE PRN PRN PRN Reason: Dry Eyes Aspirin (Aspirin) 325 mg PO QAM-[facility] Aspirin (Aspirin) 325 mg PO 1300 [facility] Stop: 07/14/18 16:00 Atorvastatin Calcium (Lipitor) 40 mg PO [facility] Last Admin: 07/12/18 20:21 Dose: 40 mg Bisacodyl (Dulcolax) 10 mg PO DAILYPRN PRN PRN Reason: Constipation Bisacodyl (Dulcolax) 10 mg HI DAILYPRN PRN PRN Reason: Constipation Brimonidine Tartrate (Alphagan 0.2% Ophth Soln) 1 drop EA EYE 0900,1400 [facility] Last Admin: 07/13/18 08:54 Dose: 1 drop Calcium Carbonate (Tums) 1,000 mg PO Q4H PRN PRN Reason: Heartburn or Indigestion Cyanocobalamin (Vitamin B-12) 1,000 mcg PO DAILY [facility] Dorzolamide HCl (Trusopt 2% Ophth Soln) 1 drop EA EYE 0900,1400 [facility] Last Admin: 07/13/18 08:51 Dose: 1 drp Emollient Cream (Hydrocerin Cream) 0 gm TOP BIDPRN PRN PRN Reason: Dry Skin Enoxaparin Sodium (Lovenox) 40 mg SC 2100 [facility] Famotidine (Pepcid) 20 mg PO Q24HR [facility] Last Admin: 07/12/18 20:21 Dose: 20 mg Folic Acid (Folvite) 1 mg PO DAILY [facility] Guaifenesin (Robitussin Sf) 200 mg PO Q4H PRN PRN Reason: Cough Labetalol HCl (Normodyne) 10 mg SLOW IVP Q2H PRN PRN Reason: SBP > 180 or DBP > 105 Last Admin: 07/12/18 17:47 Dose: 10 mg Latanoprost (Xalatan 0.005% Ophth Soln) 1 drop EA EYE HS [facility] Last Admin: 07/12/18 20:21 Dose: 1 drop Loperamide HCl (Imodium) 2 mg PO PRN PRN PRN Reason: Diarrhea/Loose Stools Miscellaneous Information (Communication Order-Pharmacy) 1 each FS NOW [facility] Stop: 07/13/18 13:35 Last Admin: 07/12/18 16:43 Dose: Not Given Ondansetron HCl (Zofran Odt) 4 mg PO Q6H PRN PRN Reason: Nausea/Vomiting Ondansetron HCl (Zofran) 4 mg IVP Q6H PRN PRN Reason: Nausea/Vomiting Pyridoxine HCl (Vitamin B 6) 50 mg PO BID [facility] Senna/Docusate Sodium (Senokot S) 2 tab PO BID PRN PRN Reason: Constipation Sodium Chloride ([place] Nasal [place] 0.65%) 0 ml EA NARE QIDPRN PRN PRN Reason: Nasal Congestion Throat Lozenges (Cepastat Lozenges) 1 [place] PO Q2H PRN PRN Reason: Sore Throat Zolpidem Tartrate (Ambien) 5 mg PO HSPRN PRN PRN Reason: Insomnia
[2018-07-13 12:44] LABS: #Eosinphils 0.2 thou/uL (0.0-0.7); #Lymphocytes 1.7 thou/uL (1.20-3.40); #Monocytes 0.6 thou/uL (0.11-0.59); #Neutrophils 4.9 thou/uL (1.40-6.50); %Basophils 0.5 % (0.0-1.0); %Eosinophils 3.3 % (0.0-10.0); %Lymphocytes 23.1 % (21.0-51.0); %Monocytes 7.7 % (0.0-10.0); %Neutrophils 65.4 % (42.0-75.0); Hemoglobin 11.5 g/dL (12.0-16.0); Mean Corpuscular HGB CONC 32.1 g/dL (32.0-36.0); Mean Corpuscular Hemoglobin 29.4 pg (27.0-31.0); Mean Corpuscular Volume 91.8 fL (78.0-98.0); Mean Platelet Volume 8.9 fL (7.4-10.4); Platelet Count 234 thou/uL (130-400); RBC Distribution Width 12.5 % (11.5-14.5); Red Blood Cell (RBC) Count 3.89 mill/uL (4.20-5.40); White Blood Cell (WBC) Count 7.5 thou/uL (4.8-10.8)
[2018-07-13] MEDS: Communication Order-Pharmacy FS SCH (13:35)
[2018-07-13 15:17] LABS: Bilirubin Negative (Negative); Blood, Urine Negative (Negative); Clarity CLOUDY (Clear); Glucose, Urine (Dipstick) Negative (Negative); Leukocyte Large (Negative); Nitrite Negative (Negative); Protein, Urine (Dipstick) Trace mg/dL (Neg-Trace); Specific Gravity, Urine 1.034 (1.002-1.036); Urobilinogen 0.2 mg/dL (0.2-1.0)
[2018-07-13 15:18] LABS: Bacteria/HPF 4+ HPF (None Seen); Hyaline Casts/LPF 0-3 HYALINE CAST LPF (0-3 Hyaline); Pathc Cast-AUWi Flag 0.79 (0-2.49)
[2018-07-13 15:29] LABS: RBC/HPF 0-3 HPF (0-3)
[2018-07-13] MEDS: Atorvastatin Calcium 40 MG TAB PO SCH (19:58)
[2018-07-13] MEDS: Famotidine 20 MG TAB PO SCH (19:58)
[2018-07-13] MEDS: pyridOXINE 50 MG (B6) TAB PO SCH (19:59)
[2018-07-13] MEDS: Latanoprost 0.005% Ophth Soln 2.5 ml Bottle EA EYE SCH (19:59)
[2018-07-14] MEDS ORDERED: Aspirin 300 MG Suppository PR SCH ×2 (09:00→13:00)
[2018-07-14] MEDS: Folic Acid 1 MG TAB PO SCH (09:22)
[2018-07-14] MEDS: Cyanocobalamin (Vitamin B-12) 1,000 MCG TAB PO SCH (09:22)
[2018-07-14] MEDS: pyridOXINE 50 MG (B6) TAB PO SCH ×2 (09:22→21:52)
[2018-07-14] MEDS: cefTRIAXone\\ROCEPHIN 1 GM in Sodium Chloride 0.9% 100 ML IVPB SCH (09:28)
[2018-07-14] MEDS: Brimonidine Tartrate 0.2% Ophth Soln 5 ml Bottle EA EYE SCH ×3 (09:29→14:20)
[2018-07-14] MEDS: Dorzolamide HCl 2% Ophth Soln 10 ml Bottle EA EYE SCH ×2 (09:29→14:22)
--- NOTE | 2018-07-14 11:10 | PDOC.PN ---
- Subjective Encounter Start Date: 07/14/18 Encounter Start Time: 07:15 Patient seen and examined. No new complaints. No overnight events - Objective Resuscitation Status - Order Detail: 07/12/18 12:39 Resuscitation Status Routine Resuscitation Status: FULL: Full Resuscitation MAR Reviewed: Yes Vital Signs & Weight: Vital Signs (12 hours) Temp Pulse Resp BP Pulse Ox 07/14/18 08:00 98.4 F 68 18 164/73 H 97 07/14/18 03:32 97.9 F 68 16 140/65 95 07/13/18 23:47 98.5 F 72 18 139/78 99 Weight Weight 168 lb 12.8 oz Most Recent Monitor Data Heart Rate from ECG 71 NIBP 165/86 NIBP BP-Mean 112 Respiration from ECG 23 SpO2 100 I&O: 07/13/18 07/14/18 07/15/18 06:59 06:59 06:59 Intake Total 575 730 480 Output Total 250 150 Balance 325 580 480 Result Diagrams: 07/13/18 08:05 07/13/18 08:05 EKG Reviewed by me: Yes (nsr) Phys Exam - Physical Examination Constitutional: NAD HEENT: PERRLA, moist MMs, sclera anicteric Neck: no JVD, supple Respiratory: no wheezing, no rales, no rhonchi Cardiovascular: RRR, no significant murmur, no rub Gastrointestinal: soft, non-tender, no distention, positive bowel sounds Musculoskeletal: no edema, pulses present Neurological: non-focal, normal sensation, moves all 4 limbs Lymphatic: no nodes Psychiatric: normal affect, A&O x 3 Skin: no rash, normal turgor Dx/Plan (1) Acute CVA (cerebrovascular accident) Code(s): I63.9 - CEREBRAL INFARCTION, UNSPECIFIED Status: Acute Comment: left corpus striatum infarction (2) tPA adm status 24 hr [facility] Code(s): Z92.82 - S/P ADMN TPA IN DIFF FAC W/N LAST 24 HR BEF ADM TO CRNT FAC Status: Acute (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 - OTHER DISORDERS OF SULFUR-BEARING AMINO-ACID METABOLISM Status: Acute (4) Vertebral artery stenosis Code(s): I65.09 - OCCLUSION AND STENOSIS OF UNSPECIFIED VERTEBRAL ARTERY Status: Chronic Qualifiers: Laterality: right Qualified Code(s): I65.01 - Occlusion and stenosis of right vertebral artery (5) Dyslipidemia Code(s): E78.5 - HYPERLIPIDEMIA, UNSPECIFIED Status: Chronic (6) Glaucoma Code(s): H40.9 - UNSPECIFIED GLAUCOMA Status: Chronic (7) HTN (hypertension) Code(s): I10 - ESSENTIAL (PRIMARY) HYPERTENSION Status: Chronic - Plan cont current plan of care, plan discussed w/ family, PT/OT, neonatal social worker * medication reviewed as below * symptomatic treatment * start amlodipine * discussed with family. Review of Systems - Review of Systems ENT: negative: Ear Pain, Ear Discharge, Nose Pain, Nose Discharge, Nose Congestion, Mouth Pain, Mouth Swelling, Throat Pain, Throat Swelling, Other Respiratory: negative: Cough, Dry, Shortness of Breath, Hemoptysis, SOB with Excertion, Pleuritic Pain, Sputum, Wheezing Cardiovascular: negative: chest pain, palpitations, orthopnea, paroxysmal nocturnal dyspnea, edema, light headedness, other Gastrointestinal: negative: Nausea, Vomiting, Abdominal Pain, Diarrhea, Constipation, Melena, Hematochezia, Other Genitourinary: negative: Dysuria, Frequency, Incontinence, Hematuria, Retention , Other Musculoskeletal: negative: Neck Pain, Shoulder Pain, Arm Pain, Back Pain, Hand Pain, Leg Pain, Foot Pain, Other - Medications/Allergies Allergies/Adverse Reactions: Allergies Allergy/AdvReac Type Severity Reaction Status Date / Time No Known Allergies Allergy Verified 07/12/18 13:58 Medications: Current Medications Acetaminophen (Tylenol) 650 mg PO Q4H PRN PRN Reason: Headache/Fever/Mild Pain (1-3) Artificial Tears (Tears Naturale) 2 drop EA EYE PRN PRN PRN Reason: Dry Eyes Aspirin (Aspirin) 325 mg PO QA-[facility] Aspirin (Aspirin) 325 mg PO 1300 [facility] Stop: 07/14/18 16:00 Atorvastatin Calcium (Lipitor) 40 mg PO HS [facility] Last Admin: 07/13/18 19:58 Dose: 40 mg Bisacodyl (Dulcolax) 10 mg PO DAILYPRN PRN PRN Reason: Constipation Bisacodyl (Dulcolax) 10 mg UT DAILYPRN PRN PRN Reason: Constipation Brimonidine Tartrate (Alphagan 0.2% Oph Soln) 1 drop EA EYE 0900,1400 [facility] Last Admin: 07/14/18 10:01 Dose: Not Given Calcium Carbonate (Tums) 1,000 mg PO Q4H PRN PRN Reason: Heartburn or Indigestion Cyanocobalamin (Vitamin B-12) 1,000 mcg PO DAILY [facility] Last Admin: 07/14/18 09:22 Dose: 1,000 mcg Dorzolamide HCl (Trusopt 2% Ophth Soln) 1 drop EA EYE 0900,1400 [facility] Last Admin: 07/14/18 09:29 Dose: 1 drp Emollient Cream (Hydrocerin Cream) 0 gm TOP BIDPRN PRN PRN Reason: Dry Skin Enoxaparin Sodium (Lovenox) 40 mg SC 2100 [facility] Famotidine (Pepcid) 20 mg PO Q24HR [facility] Last Admin: 07/13/18 19:58 Dose: 20 mg Folic Acid (Folvite) 1 mg PO DAILY [facility] Last Admin: 07/14/18 09:22 Dose: 1 mg Guaifenesin (Robitussin Sf) 200 mg PO Q4H PRN PRN Reason: Cough Ceftriaxone Sodium 1 gm/ (Sodium Chloride) 100 mls @ 200 mls/hr IVPB Q24HR [facility] Last Admin: 07/14/18 09:28 Dose: 100 mls Labetalol HCl (Normodyne) 10 mg SLOW IVP Q2H PRN PRN Reason: SBP > 180 or DBP > 105 Last Admin: 07/12/18 17:47 Dose: 10 mg Latanoprost (Xalatan 0.005% Ophth Soln) 1 drop EA EYE HS [facility] Last Admin: 07/13/18 19:59 Dose: 1 drop Loperamide HCl (Imodium) 2 mg PO PRN PRN PRN Reason: Diarrhea/Loose Stools Ondansetron HCl (Zofran Odt) 4 mg PO Q6H PRN PRN Reason: Nausea/Vomiting Ondansetron HCl (Zofran) 4 mg IVP Q6H PRN PRN Reason: Nausea/Vomiting Pyridoxine HCl (Vitamin B 6) 50 mg PO BID [facility] Last Admin: 07/14/18 09:22 Dose: 50 mg Senna/Docusate Sodium (Senokot S) 2 tab PO BID PRN PRN Reason: Constipation Sodium Chloride ([place] Nasal [place] 0.65%) 0 ml EA NARE QIDPRN PRN PRN Reason: Nasal Congestion Sodium Chloride (Flush - Normal Saline) 10 ml IVF Q12HR [facility] Last Admin: 07/14/18 09:24 Dose: 10 ml Sodium Chloride (Flush - Normal Saline) 10 ml IVF PRN PRN PRN Reason: Saline Flush Throat Lozenges (Cepastat Lozenges) 1 [place] PO Q2H PRN PRN Reason: Sore Throat Zolpidem Tartrate (Ambien) 5 mg PO HSPRN PRN PRN Reason: Insomnia
[2018-07-14] MEDS ORDERED: Aspirin 325 MG TAB PO SCH (13:00)
[2018-07-14] MEDS ORDERED: Amlodipine 5 MG TAB PO SCH (13:15)
[2018-07-14] MEDS ORDERED: Enoxaparin Sodium 40 MG/0.4 ML SYRINGE SC SCH (21:00)
[2018-07-14] MEDS: Atorvastatin Calcium 40 MG TAB PO SCH (21:52)
[2018-07-14] MEDS: Famotidine 20 MG TAB PO SCH (21:53)
[2018-07-14] MEDS: Latanoprost 0.005% Ophth Soln 2.5 ml Bottle EA EYE SCH (21:56)
[2018-07-15] MEDS ORDERED: Aspirin 325 MG TAB PO SCH (08:00)
[2018-07-15] MEDS ORDERED: Amlodipine 5 MG TAB PO SCH (09:00)
[2018-07-15] MEDS ORDERED: Aspirin 300 MG Suppository PR SCH (09:00)
[2018-07-15] MEDS: cefTRIAXone\\ROCEPHIN 1 GM in Sodium Chloride 0.9% 100 ML IVPB SCH (09:02)
[2018-07-15] MEDS: Cyanocobalamin (Vitamin B-12) 1,000 MCG TAB PO SCH (09:04)
[2018-07-15] MEDS: Folic Acid 1 MG TAB PO SCH (09:05)
[2018-07-15] MEDS: pyridOXINE 50 MG (B6) TAB PO SCH (09:05)
[2018-07-15] MEDS: Dorzolamide HCl 2% Ophth Soln 10 ml Bottle EA EYE SCH (09:05)
[2018-07-15] MEDS: Brimonidine Tartrate 0.2% Ophth Soln 5 ml Bottle EA EYE SCH (09:14)
--- NOTE | 2018-07-15 11:20 | DIS ---
DATE OF ADMISSION: 07/12/2018 DATE OF DISCHARGE: 07/15/2018 PRIMARY CARE PHYSICIAN: Dr. Gordon. DISCHARGE DISPOSITION: Home with home health. PRIMARY DISCHARGE DIAGNOSIS: Acute cerebrovascular accident due to left corpus callosum infarct. SECONDARY DISCHARGE DIAGNOSES: Homocystinemia, dyslipidemia, hypertension, glaucoma, vertebral artery stenosis, urinary tract infection. PRIMARY PROCEDURE/OPERATION: None. RADIOLOGICAL INVESTIGATION: CT brain negative. CT [facility] [place] showed vertebral artery stenosis. MRI brain showed left corpus callosum infarct. Echocardiography normal. Repeat CT brain negative for any hemorrhage. SIGNIFICANT LABORATORY DATA: WBC 7.5, hemoglobin 11.5, platelet 234. INR 1.2. Sodium 139, potassium 3.8, BUN 18, creatinine 0.80. LFT normal. LDL 118. Homocystine 16.6. Hemoglobin A1c 5.5. Urinalysis consistent with UTI. Urine culture grew Klebsiella enterobacter. DISCHARGE MEDICATIONS: 1. Amlodipine 7.5 mg p.o. daily. 2. Cipro 500 mg p.o. b.i.d. for 5 days. 3. Aspirin 325 mg p.o. daily. 4. Lipitor 40 mg p.o. at bedtime. 5. Vitamin B12 1000 mcg p.o. daily. 6. Folic acid 1 mg p.o. daily. 7. Vitamin B6 50 mg p.o. b.i.d. CONTRAINDICATION: None. CODE STATUS: Full code. INPATIENT JOB ANALYST: Dr. Puneet Baird, neurologist, was following while in the hospital. Dr. Escobedo saw this patient because patient remained in ICU after tPA. DISCHARGE PLAN: Posthospital, the patient will be discharged home with home health and subsequently, the patient will follow up with primary care physician and Neurology as instructed. HOSPITAL COURSE: An 82-year-old female who was admitted by me. Please see my HPI for further details. The patient was having acute onset of right-sided upper and lower extremity weakness with slurred speech. The patient was in window period for tPA. She was given tPA after excluding contraindication. She had initially CT of brain, which was negative. CT [facility] [place] showed vertebral artery stenosis without any obvious blockage. The patient had successful result with tPA. Post tPA, she remained in ICU for 24 hours. Subsequently, she was transferred to Stroke floor. MRI brain did confirm left corpus callosum infarct. Echocardiography showed diastolic dysfunction. Repeat CT brain after tPA was unremarkable. The patient is doing much better. She does not have any focal motor weakness. Her NIH score is zero. She needs only home health upon discharge, above-mentioned medication was started while in the hospital. She has hyperhomocystinemia and that is why we started B12, B6, and folic acid. The patient is seen and examined at bedside today. All review of systems reviewed with her and negative. Her vitals are stable. Her examination is normal. All new medication prescription given to her pharmacy. Once we have home health arranged then she will be discharged home later on today. Job ID: [id number]
[2018-07-15 12:04] VITALS: BP 166/70; TEMP 97.7
== END 2018-07-15 14:34 | disposition home health service (06) | DRG 62 ==
LOC: ERS 11:25 → CCU 12:05 → 2SE 13:09
PROVIDERS: ADMIT Internal Medicine; ATTEND Internal Medicine
DX: I63.9 Cerebral infarction, unspecified (principal); G81.01 Flaccid hemiplegia affecting right dominant side; E72.11 Homocystinuria; E72.19 Other disorders of sulfur-bearing amino-acid metabolism; N39.0 Urinary tract infection, site not specified; I10 Essential (primary) hypertension; E78.5 Hyperlipidemia, unspecified; H40.9 Unspecified glaucoma; I65.09 Occlusion and stenosis of unspecified vertebral artery
CPT/HCPCS: 36415; 36416; 70450; 70496; 70498; 70551; 80053; 80061; 81001; 82550; 83036; 83090; 84484; 85025; 85610; 85730; 87077; 87086; 87186; 93005; 93306; 96365; J0360; J0696; J1650; J2997; J7050; Q9966

== ENCOUNTER 2020-12-08 08:49 | Emergency (ER) | payer MEDICARE, MEDICAID ==
[2020-12-08 09:19] LABS: #Basophils 0.1 thou/uL (0.0-0.2); #Eosinphils 0.3 thou/uL (0.0-0.7); #Monocytes 0.6 thou/uL (0.11-0.59); #Neutrophils 3.3 thou/uL (1.40-6.50); %Basophils 0.8 % (0.0-1.0); %Eosinophils 4.6 % (0.0-10.0); %Lymphocytes 32.6 % (21.0-51.0); %Monocytes 9.3 % (0.0-10.0); %Neutrophils 52.7 % (42.0-75.0); Hemoglobin 12.1 g/dL (12.0-16.0); Mean Corpuscular Hemoglobin 28.7 pg (27.0-31.0); Mean Corpuscular Volume 92.7 fL (78.0-98.0); Mean Platelet Volume 8.6 fL (7.4-10.4); Platelet Count 198 thou/uL (130-400); RBC Distribution Width 12.8 % (11.5-14.5); White Blood Cell (WBC) Count 6.2 thou/uL (4.8-10.8)
[2020-12-08 09:27] LABS: Bilirubin Negative (Negative); Blood, Urine Negative (Negative); Clarity Clear (Clear); Glucose, Urine (Dipstick) Normal (Negative); Ketone, Urine Negative (Negative); Leukocyte Negative Leu/uL (Negative); Nitrite Negative (Negative); Protein, Urine (Dipstick) 20 mg/dL (Neg-Trace); Specific Gravity, Urine 1.028 (1.002-1.036)
[2020-12-08 11:11] LABS: ALT (SGPT) 11 U/L (8-55); AST (SGOT) 23 U/L (5-34); Albumin 3.5 g/dL (3.4-4.8); Alkaline Phosphatase 81 U/L (40-110); Anion Gap 12 mmol/L (10-20); BUN (Urea Nitrogen) 18 mg/dL (9.8-20.1); Bilirubin, Total 0.4 mg/dL (0.2-1.2); CK (CPK) 89 U/L (29-168); Calc. Creatinine Clearance 0 mL/min (70-130); Calcium 8.9 mg/dL (7.8-10.44); Carbon Dioxide 17 mmol/L (23-31); Chloride 111 mmol/L (98-107); Globulin 3.6 g/dL (2.4-3.5); Glucose 101 mg/dL (83-110); Potassium 4.3 mmol/L (3.5-5.1); Protein, Total 7.1 g/dL (5.8-8.1); Sodium 136 mmol/L (136-145)
== END 2020-12-08 12:45 ==
LOC: ERS 08:49
DX: R42 Dizziness and giddiness (principal); R53.1 Weakness; I10 Essential (primary) hypertension; Z79.899 Other long term (current) drug therapy
CPT/HCPCS: 51701; 80053; 81003; 82550; 85025; 87086; 93005

== ENCOUNTER 2021-09-28 10:20 | Emergency (ER) | payer OTHER, MEDICARE, MEDICAID ==
[2021-09-28] MEDS ORDERED: Proparacaine 0.5% Opth 15 ML BOT ONE (10:31)
[2021-09-28 12:04] LABS: Bilirubin Negative (Negative); Blood, Urine Negative (Negative); Clarity Clear (Clear); Glucose, Urine (Dipstick) Normal (Negative); Ketone, Urine Negative (Negative); Leukocyte Negative Leu/uL (Negative); Nitrite Negative (Negative); Protein, Urine (Dipstick) Negative (Neg-Trace); Specific Gravity, Urine 1.018 (1.002-1.036); Urobilinogen Normal mg/dL (Less than 2); pH, Urine 6.5 (5.0-9.0)
[2021-09-28 12:24] LABS: #Basophils 0.1 thou/uL (0.0-0.2); #Eosinphils 0.3 thou/uL (0.0-0.7); #Lymphocytes 1.6 thou/uL (1.20-3.40); #Monocytes 0.5 thou/uL (0.11-0.59); #Neutrophils 3.4 thou/uL (1.40-6.50); %Basophils 1.1 % (0.0-1.0); %Eosinophils 4.7 % (0.0-10.0); %Lymphocytes 27.5 % (21.0-51.0); %Monocytes 7.8 % (0.0-10.0); Hemoglobin 13.3 g/dL (12.0-16.0); Mean Corpuscular HGB CONC 31.5 g/dL (32.0-36.0); Mean Corpuscular Hemoglobin 30.1 pg (27.0-31.0); Mean Corpuscular Volume 95.6 fL (78.0-98.0); Mean Platelet Volume 8.2 fL (7.4-10.4); Platelet Count 233 thou/uL (130-400); RBC Distribution Width 12.2 % (11.5-14.5); Red Blood Cell (RBC) Count 4.44 mill/uL (4.20-5.40); White Blood Cell (WBC) Count 5.7 thou/uL (4.8-10.8)
[2021-09-28 12:54] LABS: ALT (SGPT) 12 U/L (8-55); AST (SGOT) 24 U/L (5-34); Albumin 4.1 g/dL (3.4-4.8); Alkaline Phosphatase 128 U/L (40-110); Anion Gap 16 mmol/L (10-20); BUN (Urea Nitrogen) 14 mg/dL (9.8-20.1); Bilirubin, Total 0.5 mg/dL (0.2-1.2); CK (CPK) 87 U/L (29-168); Calc. Creatinine Clearance 0 mL/min (70-130); Calcium 9.5 mg/dL (7.8-10.44); Carbon Dioxide 22 mmol/L (23-31); Chloride 107 mmol/L (98-107); Globulin 3.8 g/dL (2.4-3.5); Glucose 88 mg/dL (83-110); Magnesium 2.2 mg/dL (1.6-2.6); Potassium 4.8 mmol/L (3.5-5.1); Protein, Total 7.9 g/dL (5.8-8.1); Sodium 140 mmol/L (136-145)
== END 2021-09-28 14:00 | disposition home or self-care (01) ==
LOC: ERS 10:20
DX: Z04.3 Encounter for examination and observation following other accident (principal); H53.8 Other visual disturbances; H40.9 Unspecified glaucoma; I10 Essential (primary) hypertension; W19.XXXA Unspecified fall, initial encounter
CPT/HCPCS: 51701; 70450; 71045; 80053; 81003; 82550; 83735; 84484; 85025; 93005

== ENCOUNTER 2022-01-28 20:05 | Emergency (ER) | payer MEDICARE, MEDICAID ==
[2022-01-28 21:08] LABS: #Eosinphils 0.1 thou/uL (0.0-0.7); #Lymphocytes 1.8 thou/uL (1.20-3.40); #Monocytes 0.8 thou/uL (0.11-0.59); #Neutrophils 7.6 thou/uL (1.40-6.50); %Basophils 0.4 % (0.0-1.0); %Lymphocytes 17.6 % (21.0-51.0); %Monocytes 7.3 % (0.0-10.0); %Neutrophils 73.8 % (42.0-75.0); Hemoglobin 12.6 g/dL (12.0-16.0); Mean Corpuscular HGB CONC 32.6 g/dL (32.0-36.0); Mean Corpuscular Hemoglobin 29.6 pg (27.0-31.0); Mean Corpuscular Volume 90.8 fL (78.0-98.0); Mean Platelet Volume 10.7 fL (7.4-10.4); Platelet Count 153 thou/uL (130-400); RBC Distribution Width 12.6 % (11.5-14.5); Red Blood Cell (RBC) Count 4.25 mill/uL (4.20-5.40); White Blood Cell (WBC) Count 10.3 thou/uL (4.8-10.8)
[2022-01-28 21:27] LABS: ALT (SGPT) 11 U/L (8-55); AST (SGOT) 20 U/L (5-34); Albumin 4.1 g/dL (3.4-4.8); Alkaline Phosphatase 84 U/L (40-110); Anion Gap 14 mmol/L (10-20); BUN (Urea Nitrogen) 22 mg/dL (9.8-20.1); Bilirubin, Total 0.3 mg/dL (0.2-1.2); Calc. Creatinine Clearance 0 mL/min (70-130); Calcium 9.7 mg/dL (7.8-10.44); Carbon Dioxide 24 mmol/L (23-31); Chloride 109 mmol/L (98-107); Estimated GFR 71; Globulin 3.1 g/dL (2.4-3.5); Glucose 93 mg/dL (83-110); Potassium 3.8 mmol/L (3.5-5.1); Protein, Total 7.2 g/dL (5.8-8.1); Sodium 143 mmol/L (136-145)
[2022-01-28 22:56] LABS: Bilirubin Negative (Negative); Blood, Urine Negative (Negative); Clarity Clear (Clear); Glucose, Urine (Dipstick) Normal (Negative); Ketone, Urine 10 mg/dL (Negative); Leukocyte 250 Leu/uL (Negative); Nitrite Negative (Negative); Protein, Urine (Dipstick) Negative (Neg-Trace); RBC/HPF 0-3 HPF (0-3); Squamous Epithelial 0-3 HPF (0-3); Urobilinogen Normal mg/dL (Less than 2)
[2022-01-28 22:57] LABS: Bacteria/HPF 1+ HPF (None Seen)
[2022-01-28] MEDS ORDERED: Nitrofurantoin Macrocrystal 50 MG CAP PO SCH (23:45)
== END 2022-01-29 00:35 | disposition home or self-care (01) ==
LOC: ERS 20:05
DX: N39.0 Urinary tract infection, site not specified (principal); R29.6 Repeated falls; I10 Essential (primary) hypertension
CPT/HCPCS: 36415; 51701; 70450; 80053; 81003; 81015; 83880; 84484; 85025; 87077; 87086; 87186; 93005

== ENCOUNTER 2022-07-31 16:01 | Emergency (ER) | payer MEDICARE, MEDICAID ==
[~2022-07-31 16:01] MED LIST changes: -ISOVUE-370 76%-LOCM 1 ML ONE; +Iopamidol-370 76% 500 ML 1 ML ONE
[2022-07-31 17:29] LABS: #Eosinphils 0.2 thou/uL (0.0-0.7); #Lymphocytes 1.8 thou/uL (1.20-3.40); #Monocytes 0.5 thou/uL (0.11-0.59); #Neutrophils 5.6 thou/uL (1.40-6.50); %Basophils 0.5 % (0.0-1.0); %Eosinophils 2.1 % (0.0-10.0); %Lymphocytes 22.3 % (21.0-51.0); %Monocytes 6.1 % (0.0-10.0); Hemoglobin 12.7 g/dL (12.0-16.0); Mean Corpuscular HGB CONC 33.1 g/dL (32.0-36.0); Mean Corpuscular Hemoglobin 30.7 pg (27.0-31.0); Mean Corpuscular Volume 92.9 fl (78.0-98.0); Mean Platelet Volume 8.7 fL (7.4-10.4); Platelet Count 187 10x3/uL (130-400); RBC Distribution Width 12.7 % (11.5-14.5); Red Blood Cell (RBC) Count 4.15 mill/uL (4.20-5.40); White Blood Cell (WBC) Count 8.2 10x3/uL (4.8-10.8)
[2022-07-31 17:49] LABS: ALT (SGPT) 8 U/L (8-55); AST (SGOT) 18 U/L (5-34); Alkaline Phosphatase 73 U/L (40-110); Anion Gap 12 mmol/L (10-20); BUN (Urea Nitrogen) 14 mg/dL (9.8-20.1); Bilirubin, Total 0.4 mg/dL (0.2-1.2); Calc. Creatinine Clearance 0 mL/min (70-130); Calcium 9.5 mg/dL (7.8-10.44); Carbon Dioxide 22 mmol/L (23-31); Chloride 105 mmol/L (98-107); Estimated GFR 81; Globulin 3.4 g/dL (2.4-3.5); Glucose 92 mg/dL (83-110); Lipase 30 U/L (8-78); Potassium 4.4 mmol/L (3.5-5.1); Protein, Total 7.4 g/dL (5.8-8.1); Sodium 135 mmol/L (136-145)
[2022-07-31 17:54] LABS: Bacteria/HPF 2+ HPF (None Seen); Bilirubin Negative (Negative); Blood, Urine 2+ (Negative); Clarity Clear (Clear); Glucose, Urine (Dipstick) Normal (Negative); Ketone, Urine Trace mg/dL (Negative); Leukocyte 75 Leu/uL (Negative); Nitrite Negative (Negative); Protein, Urine (Dipstick) Negative (Neg-Trace); Specific Gravity, Urine 1.018 (1.002-1.036); Urobilinogen Normal mg/dL (Less than 2)
== END 2022-07-31 23:12 | disposition home or self-care (01) ==
LOC: ERS 16:01
DX: N83.202 Unspecified ovarian cyst, left side (principal); N39.0 Urinary tract infection, site not specified; U07.0 Vaping-related disorder; I10 Essential (primary) hypertension
CPT/HCPCS: 36416; 51701; 74177; 80053; 81003; 81015; 83690; 85025; 94760; Q9967

== ENCOUNTER 2022-09-28 08:56 | Inpatient (IN) | payer MEDICARE, MEDICAID ==
[2022-09-28 09:28] LABS: #Basophils 0.1 thou/uL (0.0-0.2); #Eosinphils 0.4 thou/uL (0.0-0.7); #Lymphocytes 1.7 thou/uL (1.20-3.40); #Monocytes 0.7 thou/uL (0.11-0.59); #Neutrophils 13.2 thou/uL (1.40-6.50); %Basophils 0.5 % (0.0-1.0); %Eosinophils 2.3 % (0.0-10.0); %Lymphocytes 10.8 % (21.0-51.0); %Monocytes 4.1 % (0.0-10.0); %Neutrophils 82.3 % (42.0-75.0); Hemoglobin 11.9 g/dL (12.0-16.0); Mean Corpuscular HGB CONC 32.4 g/dL (32.0-36.0); Mean Corpuscular Hemoglobin 30.3 pg (27.0-31.0); Mean Corpuscular Volume 93.7 fl (78.0-98.0); Mean Platelet Volume 8.6 fL (7.4-10.4); Platelet Count 250 10x3/uL (130-400); RBC Distribution Width 12.6 % (11.5-14.5); Red Blood Cell (RBC) Count 3.92 mill/uL (4.20-5.40); White Blood Cell (WBC) Count 16.1 10x3/uL (4.8-10.8)
[2022-09-28 09:38] LABS: INR-International Normal Ratio 1.1; PTT 33.6 sec (22.9-36.1); Prothrombin Time 14.4 sec (12.0-14.7)
[2022-09-28 09:46] LABS: ALT (SGPT) 24 U/L (8-55); AST (SGOT) 25 U/L (5-34); Albumin 3.4 g/dL (3.4-4.8); Alkaline Phosphatase 73 U/L (40-110); Anion Gap 14 mmol/L (10-20); BUN (Urea Nitrogen) 14 mg/dL (9.8-20.1); Bilirubin, Total 0.5 mg/dL (0.2-1.2); Calc. Creatinine Clearance 0 mL/min (70-130); Calcium 9.2 mg/dL (7.8-10.44); Carbon Dioxide 25 mmol/L (23-31); Chloride 107 mmol/L (98-107); Estimated GFR 70; Globulin 3.1 g/dL (2.4-3.5); Glucose 98 mg/dL (83-110); Potassium 4.5 mmol/L (3.5-5.1); Protein, Total 6.5 g/dL (5.8-8.1); Sodium 141 mmol/L (136-145)
[2022-09-28 10:27] LABS: Acetaminophen Less than 10.0 mcg/mL (10.0-30.0); Alcohol Less than 10 mg/dL (Less than 10); Lipase 36 U/L (8-78); Salicylate Less than 8.0 mg/dL (15.0-30.0)
[2022-09-28 10:35] LABS: Bilirubin Negative (Negative); Blood, Urine Trace (Negative); Clarity Clear (Clear); Glucose, Urine (Dipstick) Normal (Negative); Ketone, Urine Negative (Negative); Leukocyte 500 Leu/uL (Negative); Nitrite Negative (Negative); Protein, Urine (Dipstick) 10 mg/dL (Neg-Trace); Specific Gravity, Urine 1.023 (1.002-1.036); Squamous Epithelial 0-3 HPF (0-3); Urobilinogen Normal mg/dL (Less than 2); WBC/HPF 21-50 HPF (0-3)
[2022-09-28 10:38] LABS: Bacteria/HPF 1+ HPF (None Seen)
[2022-09-28 10:39] LABS: Amphetamine Not Detected (NotDetected); Barbiturates Screen Not Detected (NotDetected); Benzodiazepine Screen Not Detected (NotDetected); Cocaine Metabolite Screen Not Detected (NotDetected); Methadone Not Detected (NotDetected); Methamphetamine Not Detected (NotDetected); Opiate Screen Not Detected (NotDetected); Oxycodone Screen Not Detected (NotDetected); Phencyclidine (PCP) Not Detected (NotDetected); THC/Cannabinoid Screen Not Detected (NotDetected); Tricyclic Screen Not Detected (NotDetected)
[2022-09-28] MEDS ORDERED: Acetaminophen 650 MG Suppository PR PRN (10:55)
[2022-09-28] MEDS ORDERED: Ondansetron PF 4 MG/2 ML Vial IVP PRN (10:55)
[2022-09-28] MEDS ORDERED: Piperacillin/Tazobactam 3.375 GM in Sodium Chloride 0.9% 100 ML IVPB SCH ×2 (11:00→16:00)
[2022-09-28] MEDS ORDERED: Cefepime 2 GM VIAL ONE (11:16)
[2022-09-28] MEDS ORDERED: Vancomycin 1.5 GRAM/300 ML BAG 1.5 GM in Premix Bag 1 BAG IVPB SCH (11:30)
[2022-09-28 15:16] VITALS: BMI 26.6
[2022-09-28] MEDS: Piperacillin/Tazobactam 3.375 GM in Sodium Chloride 0.9% 100 ML IVPB SCH (21:07)
[2022-09-28] MEDS: Donepezil HCl 5 MG TAB PO SCH (21:15)
[2022-09-28] MEDS: Atorvastatin Calcium 40 MG TAB PO SCH (21:15)
[2022-09-28] MEDS: Metoprolol Tartrate 25 MG TAB PO SCH (21:15)
[2022-09-29] MEDS: Piperacillin/Tazobactam 3.375 GM in Sodium Chloride 0.9% 100 ML IVPB SCH ×3 (03:19→19:31)
[2022-09-29 08:16] LABS: #Eosinphils 0.7 thou/uL (0.0-0.7); #Lymphocytes 1.7 thou/uL (1.20-3.40); #Monocytes 0.7 thou/uL (0.11-0.59); #Neutrophils 7.1 thou/uL (1.40-6.50); %Basophils 0.3 % (0.0-1.0); %Lymphocytes 16.6 % (21.0-51.0); %Monocytes 6.9 % (0.0-10.0); %Neutrophils 69.1 % (42.0-75.0); Hemoglobin 11.4 g/dL (12.0-16.0); Mean Corpuscular HGB CONC 33.7 g/dL (32.0-36.0); Mean Corpuscular Hemoglobin 31.5 pg (27.0-31.0); Mean Corpuscular Volume 93.5 fl (78.0-98.0); Mean Platelet Volume 8.8 fL (7.4-10.4); Platelet Count 201 10x3/uL (130-400); RBC Distribution Width 12.6 % (11.5-14.5); Red Blood Cell (RBC) Count 3.63 mill/uL (4.20-5.40); White Blood Cell (WBC) Count 10.3 10x3/uL (4.8-10.8)
[2022-09-29 08:42] LABS: ALT (SGPT) 19 U/L (8-55); AST (SGOT) 18 U/L (5-34); Alkaline Phosphatase 64 U/L (40-110); Anion Gap 12 mmol/L (10-20); BUN (Urea Nitrogen) 10 mg/dL (9.8-20.1); Bilirubin, Total 0.6 mg/dL (0.2-1.2); Calc. Creatinine Clearance 50 mL/min (70-130); Calcium 8.6 mg/dL (7.8-10.44); Carbon Dioxide 22 mmol/L (23-31); Chloride 110 mmol/L (98-107); Estimated GFR 73; Globulin 2.8 g/dL (2.4-3.5); Glucose 76 mg/dL (83-110); Potassium 3.5 mmol/L (3.5-5.1); Protein, Total 5.8 g/dL (5.8-8.1); Sodium 140 mmol/L (136-145)
[2022-09-29] MEDS: Aspirin Chewable 81 MG TAB PO SCH (09:51)
[2022-09-29] MEDS: Metoprolol Tartrate 25 MG TAB PO SCH ×2 (09:51→19:33)
[2022-09-29] MEDS: Senokot S 8.6-50 MG TAB PO SCH (09:54)
[2022-09-29] MEDS: Polyethylene Glycol 3350 17 GM Packet PO SCH (09:54)
[2022-09-29] MEDS ORDERED: Vancomycin 1 GM in Premix Bag 1 BAG IVPB SCH (11:00)
[2022-09-29 11:24] LABS: Vancomycin, Trough 10.2 ug/mL
[2022-09-29] MEDS: DorzolamidE/Timolol 2%/0.5% Ophth Soln 10 ml Bottle EA EYE SCH (11:40)
[2022-09-29] MEDS: Donepezil HCl 5 MG TAB PO SCH (19:33)
[2022-09-29] MEDS: Atorvastatin Calcium 40 MG TAB PO SCH (19:33)
[2022-09-30] MEDS: Piperacillin/Tazobactam 3.375 GM in Sodium Chloride 0.9% 100 ML IVPB SCH ×3 (03:48→19:45)
[2022-09-30] MEDS: Polyethylene Glycol 3350 17 GM Packet PO SCH (07:53)
[2022-09-30] MEDS: Senokot S 8.6-50 MG TAB PO SCH (07:53)
[2022-09-30] MEDS: Metoprolol Tartrate 25 MG TAB PO SCH ×2 (07:53→19:46)
[2022-09-30] MEDS: Aspirin Chewable 81 MG TAB PO SCH (07:53)
[2022-09-30 07:54] LABS: #Eosinphils 0.8 thou/uL (0.0-0.7); #Lymphocytes 1.9 thou/uL (1.20-3.40); #Monocytes 0.8 thou/uL (0.11-0.59); #Neutrophils 6.4 thou/uL (1.40-6.50); %Basophils 0.2 % (0.0-1.0); %Eosinophils 8.1 % (0.0-10.0); %Monocytes 7.9 % (0.0-10.0); %Neutrophils 64.8 % (42.0-75.0); Hemoglobin 11.5 g/dL (12.0-16.0); Mean Corpuscular HGB CONC 32.3 g/dL (32.0-36.0); Mean Corpuscular Volume 92.7 fl (78.0-98.0); Mean Platelet Volume 9.9 fL (7.4-10.4); Platelet Count 188 10x3/uL (130-400); RBC Distribution Width 12.3 % (11.5-14.5); Red Blood Cell (RBC) Count 3.84 mill/uL (4.20-5.40); White Blood Cell (WBC) Count 9.9 10x3/uL (4.8-10.8)
[2022-09-30] MEDS: DorzolamidE/Timolol 2%/0.5% Ophth Soln 10 ml Bottle EA EYE SCH (07:57)
[2022-09-30 08:14] LABS: Anion Gap 14 mmol/L (10-20); BUN (Urea Nitrogen) 7 mg/dL (9.8-20.1); Calc. Creatinine Clearance 54 mL/min (70-130); Calcium 9.1 mg/dL (7.8-10.44); Carbon Dioxide 22 mmol/L (23-31); Chloride 107 mmol/L (98-107); Estimated GFR 81; Glucose 82 mg/dL (83-110); Potassium 3.6 mmol/L (3.5-5.1); Sodium 139 mmol/L (136-145)
[2022-09-30] MEDS ORDERED: Amlodipine 5 MG TAB PO SCH (10:30)
[2022-09-30] MEDS: VANCOMYCIN 1.25 GM/250 ML BAG 1.25 GM in Premix Bag 1 BAG IVPB SCH (10:53)
[2022-09-30] MEDS: Atorvastatin Calcium 40 MG TAB PO SCH (19:45)
[2022-09-30] MEDS: Donepezil HCl 5 MG TAB PO SCH (19:46)
[2022-10-01] MEDS: Piperacillin/Tazobactam 3.375 GM in Sodium Chloride 0.9% 100 ML IVPB SCH ×4 (03:00→23:13)
[2022-10-01 07:05] LABS: #Basophils 0.1 thou/uL (0.0-0.2); #Eosinphils 0.7 thou/uL (0.0-0.7); #Lymphocytes 2.1 thou/uL (1.20-3.40); #Monocytes 0.8 thou/uL (0.11-0.59); #Neutrophils 5.3 thou/uL (1.40-6.50); %Basophils 0.6 % (0.0-1.0); %Eosinophils 8.2 % (0.0-10.0); %Lymphocytes 22.9 % (21.0-51.0); %Monocytes 8.9 % (0.0-10.0); %Neutrophils 59.4 % (42.0-75.0); Hemoglobin 10.5 g/dL (12.0-16.0); Mean Corpuscular HGB CONC 31.8 g/dL (32.0-36.0); Mean Corpuscular Hemoglobin 29.6 pg (27.0-31.0); Mean Corpuscular Volume 93.2 fl (78.0-98.0); Mean Platelet Volume 8.7 fL (7.4-10.4); Platelet Count 213 10x3/uL (130-400); RBC Distribution Width 12.3 % (11.5-14.5); Red Blood Cell (RBC) Count 3.56 mill/uL (4.20-5.40)
[2022-10-01 07:24] LABS: Anion Gap 12 mmol/L (10-20); BUN (Urea Nitrogen) 13 mg/dL (9.8-20.1); Calc. Creatinine Clearance 47 mL/min (70-130); Calcium 8.7 mg/dL (7.8-10.44); Carbon Dioxide 24 mmol/L (23-31); Chloride 108 mmol/L (98-107); Estimated GFR 69; Glucose 80 mg/dL (83-110); Potassium 3.6 mmol/L (3.5-5.1); Sodium 140 mmol/L (136-145)
[2022-10-01] MEDS: Amlodipine 5 MG TAB PO SCH (08:44)
[2022-10-01] MEDS: Metoprolol Tartrate 25 MG TAB PO SCH ×3 (08:45→20:03)
[2022-10-01] MEDS: Senokot S 8.6-50 MG TAB PO SCH (08:46)
[2022-10-01] MEDS: DorzolamidE/Timolol 2%/0.5% Ophth Soln 10 ml Bottle EA EYE SCH (08:46)
[2022-10-01] MEDS: Aspirin Chewable 81 MG TAB PO SCH (08:46)
[2022-10-01] MEDS: Polyethylene Glycol 3350 17 GM Packet PO SCH (08:46)
[2022-10-01] MEDS ORDERED: Iopamidol 370 76% 100 ML VIAL ONE (11:07)
[2022-10-01] MEDS: VANCOMYCIN 1.25 GM/250 ML BAG 1.25 GM in Premix Bag 1 BAG IVPB SCH (12:08)
[2022-10-01 12:34] LABS: Anion Gap 12 mmol/L (10-20); BUN (Urea Nitrogen) 13 mg/dL (9.8-20.1); Calc. Creatinine Clearance 48 mL/min (70-130); Carbon Dioxide 24 mmol/L (23-31); Chloride 106 mmol/L (98-107); Estimated GFR 70; Glucose 88 mg/dL (83-110); Potassium 3.7 mmol/L (3.5-5.1); Sodium 138 mmol/L (136-145)
[2022-10-01 12:41] LABS: Troponin I 0.012 ng/mL (< 0.028)
[2022-10-01] MEDS: Atorvastatin Calcium 40 MG TAB PO SCH (20:03)
[2022-10-01] MEDS: Donepezil HCl 5 MG TAB PO SCH (20:03)
[2022-10-02] MEDS: Piperacillin/Tazobactam 3.375 GM in Sodium Chloride 0.9% 100 ML IVPB SCH (06:16)
[2022-10-02] MEDS: DorzolamidE/Timolol 2%/0.5% Ophth Soln 10 ml Bottle EA EYE SCH (08:51)
[2022-10-02] MEDS: Aspirin Chewable 81 MG TAB PO SCH (08:51)
[2022-10-02] MEDS: Senokot S 8.6-50 MG TAB PO SCH (08:51)
[2022-10-02] MEDS: Amlodipine 5 MG TAB PO SCH (08:52)
[2022-10-02] MEDS: Metoprolol Tartrate 25 MG TAB PO SCH (08:54)
[2022-10-02] MEDS: Polyethylene Glycol 3350 17 GM Packet PO SCH (09:26)
[2022-10-02 10:43] LABS: Vancomycin, Trough 12.4 ug/mL
[2022-10-02] MEDS: VANCOMYCIN 1.25 GM/250 ML BAG 1.25 GM in Premix Bag 1 BAG IVPB SCH (11:23)
[2022-10-02 13:34] VITALS: BP 139/57; TEMP 98.3
== END 2022-10-02 14:08 | DRG 871 ==
LOC: ERS 08:56 → T4-A 12:48
PROVIDERS: ADMIT Internal Medicine; ATTEND Hospitalist
DX: A41.9 Sepsis, unspecified organism (principal); G93.41 Metabolic encephalopathy; J18.9 Pneumonia, unspecified organism; N30.00 Acute cystitis without hematuria; F03.90 Unspecified dementia, unspecified severity, without behavioral disturbance, psychotic disturbance, mood disturbance, and anxiety; I10 Essential (primary) hypertension; H40.9 Unspecified glaucoma; E78.5 Hyperlipidemia, unspecified; Y95 Nosocomial condition; K59.00 Constipation, unspecified; Z79.82 Long term (current) use of aspirin; Z79.899 Other long term (current) drug therapy; Z86.73 Personal history of transient ischemic attack (TIA), and cerebral infarction without residual deficits; Z79.51 Long term (current) use of inhaled steroids
CPT/HCPCS: 36415; 36416; 51701; 70450; 70496; 70498; 70551; 71045; 80048; 80053; 80202; 80306; 80307; 81003; 81015; 82140; 83605; 83690; 84443; 84484; 85025; 85610; 85730; 87040; 87086; 93005; 93010; 94760; 96365; 96375; 97139; J0692; J1956; J2543; J3370; J3370-JW; J3490; Q9967

== ENCOUNTER 2022-10-10 10:41 | Inpatient (IN) | payer MEDICARE, MEDICAID ==
[2022-10-10] MEDS ORDERED: Iopamidol-370 76% 500 ML MDV (1 ML CHARGE) ONE (11:07)
[2022-10-10 11:39] LABS: #Eosinphils 0.6 thou/uL (0.0-0.7); #Neutrophils 11.7 thou/uL (1.40-6.50); %Basophils 0.2 % (0.0-1.0); %Eosinophils 4.1 % (0.0-10.0); %Monocytes 6.4 % (0.0-10.0); %Neutrophils 76.3 % (42.0-75.0); Hemoglobin 12.2 g/dL (12.0-16.0); Mean Corpuscular HGB CONC 31.7 g/dL (32.0-36.0); Mean Corpuscular Hemoglobin 29.7 pg (27.0-31.0); Mean Corpuscular Volume 93.6 fl (78.0-98.0); Mean Platelet Volume 8.6 fL (7.4-10.4); Platelet Count 201 10x3/uL (130-400); RBC Distribution Width 12.9 % (11.5-14.5); Red Blood Cell (RBC) Count 4.11 mill/uL (4.20-5.40); White Blood Cell (WBC) Count 15.4 10x3/uL (4.8-10.8)
[2022-10-10 11:54] LABS: ALT (SGPT) 12 U/L (8-55); AST (SGOT) 16 U/L (5-34); Albumin 3.6 g/dL (3.4-4.8); Alkaline Phosphatase 78 U/L (40-110); Anion Gap 14 mmol/L (10-20); BUN (Urea Nitrogen) 15 mg/dL (9.8-20.1); Bilirubin, Total 0.5 mg/dL (0.2-1.2); Calc. Creatinine Clearance 0 mL/min (70-130); Calcium 9.7 mg/dL (7.8-10.44); Carbon Dioxide 26 mmol/L (23-31); Chloride 110 mmol/L (98-107); Estimated GFR 76; Glucose 91 mg/dL (83-110); Potassium 4.9 mmol/L (3.5-5.1); Protein, Total 6.6 g/dL (5.8-8.1); Sodium 145 mmol/L (136-145)
[2022-10-10 12:32] LABS: Bacteria/HPF 1+ HPF (None Seen); Bilirubin Negative (Negative); Blood, Urine 1+ (Negative); Clarity Turbid (Clear); Glucose, Urine (Dipstick) Normal (Negative); Ketone, Urine Negative (Negative); Leukocyte 500 Leu/uL (Negative); Nitrite Negative (Negative); Protein, Urine (Dipstick) 20 mg/dL (Neg-Trace); Specific Gravity, Urine 1.029 (1.002-1.036); Urobilinogen 3 mg/dL (Less than 2); WBC/HPF Greater than 50 HPF (0-3)
[2022-10-10] MEDS ORDERED: cefTRIAXone (ROCEPHIN) 2 GM VIAL ONE (15:12)
[2022-10-10] MEDS ORDERED: Bisacodyl 5 MG TAB PO PRN (16:29)
[2022-10-10] MEDS ORDERED: Acetaminophen 650 MG Suppository PR PRN (16:29)
[2022-10-10] MEDS ORDERED: Ondansetron ODT 4 MG TAB PO PRN (16:29)
[2022-10-10] MEDS ORDERED: Moisturizing Cream (Eucerin) 113 GM JAR TOP PRN (16:29)
[2022-10-10] MEDS ORDERED: Calcium Carbonate 500 MG ChewTAB PO PRN (16:29)
[2022-10-10] MEDS ORDERED: Senokot S 8.6-50 MG TAB PO PRN (16:29)
[2022-10-10] MEDS ORDERED: Artificial Tear Sol 15 ML BOT EA EYE PRN (16:29)
[2022-10-10] MEDS: Lactated Ringer's 500 ML IV SCH ×2 (20:25→22:33)
[2022-10-10] MEDS: Atorvastatin Calcium 40 MG TAB PO SCH (22:32)
[2022-10-10] MEDS: Donepezil HCl 5 MG TAB PO SCH (22:32)
[2022-10-11 07:04] LABS: #Eosinphils 0.7 thou/uL (0.0-0.7); #Lymphocytes 1.9 thou/uL (1.20-3.40); #Monocytes 0.7 thou/uL (0.11-0.59); #Neutrophils 6.4 thou/uL (1.40-6.50); %Basophils 0.3 % (0.0-1.0); %Eosinophils 7.6 % (0.0-10.0); %Lymphocytes 19.6 % (21.0-51.0); %Monocytes 6.9 % (0.0-10.0); %Neutrophils 65.6 % (42.0-75.0); Hemoglobin 11.1 g/dL (12.0-16.0); Mean Corpuscular HGB CONC 32.2 g/dL (32.0-36.0); Mean Corpuscular Hemoglobin 29.9 pg (27.0-31.0); Mean Corpuscular Volume 92.9 fl (78.0-98.0); Mean Platelet Volume 9.4 fL (7.4-10.4); Platelet Count 156 10x3/uL (130-400); RBC Distribution Width 12.6 % (11.5-14.5); Red Blood Cell (RBC) Count 3.71 mill/uL (4.20-5.40); White Blood Cell (WBC) Count 9.7 10x3/uL (4.8-10.8)
[2022-10-11 07:27] LABS: ALT (SGPT) 9 U/L (8-55); AST (SGOT) 16 U/L (5-34); Albumin 3.1 g/dL (3.4-4.8); Alkaline Phosphatase 67 U/L (40-110); Anion Gap 13 mmol/L (10-20); BUN (Urea Nitrogen) 11 mg/dL (9.8-20.1); Bilirubin, Total 0.5 mg/dL (0.2-1.2); Calc. Creatinine Clearance 63 mL/min (70-130); Calcium 8.9 mg/dL (7.8-10.44); Carbon Dioxide 23 mmol/L (23-31); Chloride 109 mmol/L (98-107); Estimated GFR 87; Globulin 2.9 g/dL (2.4-3.5); Glucose 68 mg/dL (83-110); Potassium 3.6 mmol/L (3.5-5.1); Sodium 141 mmol/L (136-145)
[2022-10-11] MEDS: Aspirin 81 mg Enteric Coated Tablet PO SCH (08:39)
[2022-10-11] MEDS: hydrALAZINE 20 MG/ML VIAL SLOW IVP PRN ×2 (08:40→12:52)
[2022-10-11] MEDS ORDERED: Amlodipine 5 MG TAB PO SCH (09:00)
[2022-10-11 11:21] VITALS: BMI 25.4
[2022-10-11] MEDS: Lactated Ringer's 500 ML IV SCH (12:44)
[2022-10-11] MEDS: cefTRIAXone\\ROCEPHIN 2 GM in Sodium Chloride 0.9% 100 ML IVPB SCH (16:01)
[2022-10-11] MEDS: Atorvastatin Calcium 40 MG TAB PO SCH ×2 (20:59→21:06)
[2022-10-11] MEDS: Amlodipine 5 MG TAB PO SCH ×2 (20:59→21:06)
[2022-10-11] MEDS: Donepezil HCl 5 MG TAB PO SCH ×2 (20:59→21:06)
[2022-10-12] MEDS: hydrALAZINE 20 MG/ML VIAL SLOW IVP PRN (00:48)
[2022-10-12] MEDS: Aspirin 81 mg Enteric Coated Tablet PO SCH (09:41)
[2022-10-12] MEDS: Amlodipine 5 MG TAB PO SCH ×2 (09:41→21:50)
[2022-10-12] MEDS: Acetaminophen 325 MG TAB PO PRN ×2 (12:44→21:50)
[2022-10-12] MEDS: cefTRIAXone\\ROCEPHIN 2 GM in Sodium Chloride 0.9% 100 ML IVPB SCH (16:09)
[2022-10-12] MEDS: Donepezil HCl 5 MG TAB PO SCH (21:50)
[2022-10-12] MEDS: Atorvastatin Calcium 40 MG TAB PO SCH (21:50)
[2022-10-13] MEDS: Aspirin 81 mg Enteric Coated Tablet PO SCH (10:03)
[2022-10-13] MEDS: Amlodipine 5 MG TAB PO SCH ×2 (10:03→20:25)
[2022-10-13] MEDS ORDERED: Metoprolol Tartrate 25 MG TAB PO SCH (12:42)
[2022-10-13] MEDS: cefTRIAXone\\ROCEPHIN 2 GM in Sodium Chloride 0.9% 100 ML IVPB SCH (16:10)
[2022-10-13] MEDS: Atorvastatin Calcium 40 MG TAB PO SCH (20:25)
[2022-10-13] MEDS: Metoprolol Tartrate 25 MG TAB PO SCH (20:25)
[2022-10-13] MEDS: Donepezil HCl 5 MG TAB PO SCH (20:25)
[2022-10-13] MEDS ORDERED: Sterile Water 10 ML VIAL FS SCH (21:30)
[2022-10-13] MEDS ORDERED: OLANZapine 10 MG VIAL IM SCH (21:30)
[2022-10-13] MEDS ORDERED: Haloperidol Lactate 5 MG/ML VIAL SLOW IVP SCH (21:30)
[2022-10-14 07:47] VITALS: TEMP 98
[2022-10-14] MEDS: Amlodipine 5 MG TAB PO SCH (09:43)
[2022-10-14] MEDS: Aspirin 81 mg Enteric Coated Tablet PO SCH (09:43)
[2022-10-14] MEDS: Metoprolol Tartrate 25 MG TAB PO SCH (09:43)
[2022-10-14 12:47] VITALS: BP 140/73
== END 2022-10-14 15:22 | DRG 689 ==
LOC: ERS 10:41 → SUATTDRO 10:41 → SURG A 16:29 → OBSVTOIN 10-11 15:04
PROVIDERS: ADMIT Family Medicine; ATTEND Family Medicine
DX: N30.90 Cystitis, unspecified without hematuria (principal); G93.41 Metabolic encephalopathy; I50.42 Chronic combined systolic (congestive) and diastolic (congestive) heart failure; Z66 Do not resuscitate; F03.90 Unspecified dementia, unspecified severity, without behavioral disturbance, psychotic disturbance, mood disturbance, and anxiety; H40.9 Unspecified glaucoma; I11.0 Hypertensive heart disease with heart failure; R53.1 Weakness; I34.0 Nonrheumatic mitral (valve) insufficiency; F20.9 Schizophrenia, unspecified; Z79.899 Other long term (current) drug therapy; Z98.49 Cataract extraction status, unspecified eye; Z86.73 Personal history of transient ischemic attack (TIA), and cerebral infarction without residual deficits; Z79.82 Long term (current) use of aspirin
CPT/HCPCS: 36415; 70450; 71045; 74177; 80053; 81003; 81015; 83605; 84145; 84443; 84484; 85025; 87040; 87077; 87086; 87149; 93005; 97139; J0360; J0696; J1650; J3490; J7120; Q9967